=== PATIENT | female | born 1955 | race Caucasian/White ===

== ENCOUNTER 2021-10-25 13:06 | Emergency (ER) | payer MEDICARE, SELFPAY ==
[2021-10-25 14:41] VITALS: BP 137/72; PULSE 91; RESP 18; TEMP 36.7; O2SAT 96; BMI 24.0
--- NOTE | 2021-10-25 14:52 | ED_ITS ---
HPI - Abdominal Pain General: Chief Complaint: Abdominal Pain Stated Complaint: Catscan Time Seen by Provider: 10/25/21 14:52 Source: patient Mode of arrival: ambulatory Limitations: no limitations History of Present Illness: 66-year-old female presents emergency room from her nurse practitioner's office. She had 3+ blood in the urine depth there is other labs pending but I cannot see them. She has a history of diverticulosis has had suprapubic discomfort recently but no flank pain. She denies any dysuria. No fever sweats chills no diarrhea no hematochezia melena hematemesis coffee-ground emesis. She not noticed anything that makes it better or worse. MD elicited complaint: abdominal pain Pertinent past history: diverticulitis and other (Diverticulosis) Onset (ago): day(s) Pain Consistency: constant Location: Suprapubic Severity: mild Quality: cramping Radiation: none Exacerbating factors: nothing Relieving factors: nothing Associated Symptoms: Reports GI cramping; Denies anorexia, belching, bloating, change in bowel habits, change in stool character, chills, coffee ground emesis, constipation, diarrhea, dyspepsia, dysuria, excessive flatus, fever(s), heartburn, hematochezia, hematuria, hematemesis, fecal incontinence, loose stools, melena, nausea, poor appetite, syncope and vomiting Review of Systems Const: Denies: fever(s) or chills ENMT: Denies: throat pain, ear or mastoid pain, nasal discharge or nasal congestion Card: Denies: syncope Resp: Denies: dyspnea, productive cough or non-productive cough GI: Reports: GI cramping; Denies: nausea, vomiting, hematemesis, coffee ground emesis, heartburn, diarrhea, constipation, bloating, belching, excessive flatus, fecal inco ntinence, change in bowel habits, change in stool character, hematochezia or melena : Denies: dysuria or hematuria Skin/Breast: Denies: rash or pruritus PFSH ED PFSH: Medical History Anxiety Chronic back pain greater than 3 months duration Fibromyalgia GERD (gastroesophageal reflux disease) Smoker Surgical History H/O dilation and curettage History of tonsillectomy Family History Other Cancer Diabetes Social History Smoking and tobacco status: current every day smoker cigarettes Years cigare ttes smoked: 10 Alcohol intake: current Alcohol intake frequency: holidays/special occasions only Alcohol type: wine Household members: children Marital status: Current occupational status: retired Current gender identity: Female Physical Exam Const: GENERAL APPEARANCE: cooperative and comfortable ORIENTATION/CONSCIOUSNESS: Yes awake, Yes oriented to person, Yes oriented to place and Yes oriented to time HENMT: COMMON NORMALS: normocephalic, atraumatic and hearing grossly normal bilaterally HEAD & SCALP: normocephalic and atraumatic Neck/C-Spine: COMMON NORMALS: no JVD Resp: COMMON NORMALS: normal respiratory effort, No retractions, No use of accessory muscles and clear to auscultation bilaterally AUSCULTATION: clear to auscultation bilaterally Cardio: COMMON NORMALS: no JVD, regular rate, regular rhythm and No murmurs present (Cardio) RATE: regular rate RHYTHM: regular rhythm GI: COMMON NORMALS: No hepatosplenomegaly present AUSCULTATION: Yes normoactive bowel sounds PALPATION: Yes Tenderness to palpation present (GI) (Suprapubic), No Guarding due to palpation present (GI) and Yes No hepatosplenomegaly present : COMMON NORMALS: Yes no CVA tenderness BLADDER/KIDNEY EXAM: Yes no CVA tenderness Back/Pelvis: COMMON NORMALS: no CVA tenderness Extremity: COMMON NORMALS: normal to inspection, capillary refill normal, no clubbing, cyanosis or edema, no calf tenderness and no pedal edema Neuro: SENSORIUM/ORIENTATION: Yes oriented to person, Yes oriented to place and Yes oriented to time Skin: COMMON NORMALS: no rashes or lesions noted GENERAL SKIN EXAM: no rashes or lesions noted Course Vital Signs: Vital signs: Vital Signs Temperature 98.0 F 10/25/21 14:41 Pulse Rate 91 10/25/21 16:05 Respiratory Rate 16 10/25/21 16:05 Blood Pressure 155/99 10/25/21 16:05 Pulse Oximetry 97 10/25/21 16:05 MDM - Abdominal Pain Medical Decision Making Also the patient's discomfort is suprapubic. To the extent she may have diverticulitis it is very mild. Discussed this with her do not recommend a CT I think at this point given her relatively normal white count we can just treat her with Augmentin which should cover most bladder pathogens as well as adequately treat diverticulitis if present however does not seem to be on exam. Clear liquid diet for the next 24 to 40 hours and advance as tolerated. Return if any symptoms worsen Medical Records I reviewed the patient's medical records. Lab Data I reviewed the patient's lab results. Discharge Plan Discharge Patient Disposition: Home Clinical Impression: Cystitis Condition: Stable Prescriptions: New Augmentin 875-125 mg tablet 1 tab PO BID Qty: 20 0RF No Action albuterol sulfate [ProAir HFA] 90 mcg/actuation HFA aerosol inhaler 2 puff inhalation QID PRN (Reason: shortness of breath or wheezing) Qty: 8.5 0RF alprazolam 2 mg tablet 2 mg PO DAILY PRN (Reason: anxiety) Qty: 45 2RF carisoprodol [Soma] 350 mg tablet 350 mg PO TID Qty: 90 2RF esomeprazole magnesium 40 mg capsule,delayed release(DR/EC) 40 mg PO DAILY Qty: 30 4RF fluoxetine 40 mg capsule 40 mg PO DAILY Qty: 30 4RF fluticasone propionate [Flonase Allergy Relief] 50 mcg/actuation spray,suspension 1 spray intranasal DAILY Qty: 16 3RF Rx Instructions: administer into each nostril tramadol 50 mg tablet 50 mg PO TID PRN (Reason: pain) Qty: 90 1RF diclofenac sodium [Voltaren Arthritis Pain] 1 % gel 2 g topical QID Qty: 100 2RF Rx Instructions: apply to single elbow, wrist or hand; for hand includes palm/fingers/back of hand Discharge Orders: Discharge ED (Routine); Ordered 10/25/21 Ordered By: Abdoulaye Augustin Referrals: Charo Hernandez MD [Primary Care Provider] - Discharge Diet: Usual diet Discharge Activity: Increase activity as tolerated Patient Instructions: Opioid Safety Activity Restrictions/Additional Instructions: Increase fluids follow-up with your primary care doctor as needed Coding Level of Care Code ED Jumpbasting Facing Baster for Chg Fwd Exam Comprehensive
--- NOTE | 2021-10-25 15:45 | PC.NURSE ---
pt outside room asked the pt if i could help. pt agitated she stated that she wanted to speak with the dr. while at bedside pt states, i don't want to be here for 6 hours and just give me some dam antibiotic so i can go home . informed dr. reyez he verbalizes understanding stating, i'm just waiting for her cbc to come back .
[2021-10-25 16:05] VITALS: BP 155/99; PULSE 91; RESP 16; O2SAT 97
== END 2021-10-25 16:07 | disposition home or self-care (01) ==
PROVIDERS: Emergency Provider Family Medicine; PCP Family Medicine
DX: N30.90 Cystitis, unspecified without hematuria (principal); F17.210 Nicotine dependence, cigarettes, uncomplicated
CPT/HCPCS: 80053; 81003; 85025; 87086; 99281

== ENCOUNTER → 2021-11-06 11:50 | Outpatient (BNVA) | payer MEDICARE, SELFPAY | PROVIDERS: PCP Nurse Practitioner Family; Visit Provider Nurse Practitioner Family | DX: F41.9 Anxiety disorder, unspecified (principal); M79.7 Fibromyalgia; Z13.6 Encounter for screening for cardiovascular disorders; M54.9 Dorsalgia, unspecified; G89.29 Other chronic pain; K21.9 Gastro-esophageal reflux disease without esophagitis; E55.9 Vitamin D deficiency, unspecified | CPT/HCPCS: 80053; 80061; 81003; 82306; 82607; 83735; 84443; 85025; 87086 ==

== ENCOUNTER → 2022-08-12 11:15 | Outpatient (BNVA) | payer MEDICARE, SELFPAY | PROVIDERS: PCP Nurse Practitioner Family; Visit Provider Family Medicine | DX: E53.8 Deficiency of other specified B group vitamins (principal); E55.9 Vitamin D deficiency, unspecified; E78.5 Hyperlipidemia, unspecified; G89.29 Other chronic pain; K21.9 Gastro-esophageal reflux disease without esophagitis; M54.9 Dorsalgia, unspecified; M79.7 Fibromyalgia | CPT/HCPCS: 80053; 80061; 82306; 82607; 84443; 85025 ==

== ENCOUNTER → 2022-11-11 10:30 | Outpatient (BNVA) | payer MEDICARE, SELFPAY | PROVIDERS: PCP Nurse Practitioner Family; Visit Provider Family Medicine | DX: E53.8 Deficiency of other specified B group vitamins (principal); E55.9 Vitamin D deficiency, unspecified; E78.5 Hyperlipidemia, unspecified; M79.7 Fibromyalgia | CPT/HCPCS: 80053; 80061; 82306; 82607; 84443; 85025; 87400 ==

== ENCOUNTER → 2022-11-22 11:24 | Outpatient (BNVA) | payer MEDICARE, SELFPAY | PROVIDERS: PCP Nurse Practitioner Family; Visit Provider Family Medicine | DX: J11.1 Influenza due to unidentified influenza virus with other respiratory manifestations (principal) | CPT/HCPCS: 87400 ==

== ENCOUNTER → 2023-01-13 08:10 | Outpatient (BNVA) | payer MEDICARE, SELFPAY | PROVIDERS: PCP Family Medicine; Referring Provider Family Medicine; Visit Provider Otolaryngology | DX: J32.9 Chronic sinusitis, unspecified (principal); M26.623 Arthralgia of bilateral temporomandibular joint; F17.211 Nicotine dependence, cigarettes, in remission | CPT/HCPCS: 99203 ==

== ENCOUNTER → 2023-02-11 10:53 | Outpatient (BNVA) | payer MEDICARE, SELFPAY | PROVIDERS: PCP Family Medicine; Visit Provider Family Medicine | DX: E53.8 Deficiency of other specified B group vitamins (principal); E55.9 Vitamin D deficiency, unspecified; E78.5 Hyperlipidemia, unspecified; M79.7 Fibromyalgia; Z20.828 Contact with and (suspected) exposure to other viral communicable diseases; K21.9 Gastro-esophageal reflux disease without esophagitis; M54.9 Dorsalgia, unspecified; G89.29 Other chronic pain | CPT/HCPCS: 80053; 80061; 82306; 82607; 84443; 85025 ==

== ENCOUNTER → 2023-05-13 11:16 | Outpatient (BNVA) | payer MEDICARE, SELFPAY | PROVIDERS: PCP Family Medicine; Visit Provider Family Medicine | DX: M79.7 Fibromyalgia (principal); F32.A Depression, unspecified; E53.8 Deficiency of other specified B group vitamins; E78.5 Hyperlipidemia, unspecified; E55.9 Vitamin D deficiency, unspecified | CPT/HCPCS: 80053; 80061; 82306; 82607; 84443; 85025 ==

== ENCOUNTER → 2023-08-15 12:00 | Outpatient (BNVA) | payer MEDICARE, SELFPAY | PROVIDERS: PCP Family Medicine; Visit Provider Family Medicine | DX: E53.8 Deficiency of other specified B group vitamins (principal); E78.5 Hyperlipidemia, unspecified; E55.9 Vitamin D deficiency, unspecified | CPT/HCPCS: 80053; 80061; 82306; 82607; 84443; 85025 ==

== ENCOUNTER → 2023-11-10 16:30 | Outpatient (BNVA) | payer MEDICARE, SELFPAY | PROVIDERS: PCP Family Medicine; Visit Provider Family Medicine | DX: M79.7 Fibromyalgia (principal); E78.2 Mixed hyperlipidemia; E55.9 Vitamin D deficiency, unspecified | CPT/HCPCS: 80053; 80061; 82306; 84443; 85025 ==

== ENCOUNTER → 2023-11-25 15:42 | Outpatient (BNVA) | payer MEDICARE, SELFPAY | PROVIDERS: PCP Family Medicine; Visit Provider Family Medicine | DX: B34.9 Viral infection, unspecified (principal); R05.9 Cough, unspecified | CPT/HCPCS: 87400; 87426 ==

== ENCOUNTER → 2023-12-11 15:55 | Outpatient (BNVA) | payer MEDICARE, SELFPAY | PROVIDERS: PCP Family Medicine; Visit Provider Family Medicine | DX: R05.9 Cough, unspecified (principal); N39.0 Urinary tract infection, site not specified | CPT/HCPCS: 81003; 87086; 87400 ==

== ENCOUNTER → 2023-12-26 15:27 | Outpatient (BNVA) | payer MEDICARE, SELFPAY | PROVIDERS: PCP Family Medicine; Visit Provider Nurse Practitioner Family | DX: R05.9 Cough, unspecified (principal) | CPT/HCPCS: 87400 ==

== ENCOUNTER → 2024-02-09 11:17 | Outpatient (BNVA) | payer MEDICARE, SELFPAY | PROVIDERS: PCP Family Medicine; Visit Provider Family Medicine | DX: E78.2 Mixed hyperlipidemia (principal); E55.9 Vitamin D deficiency, unspecified; E53.8 Deficiency of other specified B group vitamins; K21.9 Gastro-esophageal reflux disease without esophagitis; M79.7 Fibromyalgia; F41.9 Anxiety disorder, unspecified; M54.9 Dorsalgia, unspecified; G89.29 Other chronic pain | CPT/HCPCS: 80053; 80061; 82306; 82607; 84443; 85025 ==

== ENCOUNTER 2024-12-28 07:55 | Outpatient (CLI) | payer MEDICARE, SELFPAY ==
--- NOTE | 2024-12-28 07:58 | MM_ITS ---
WS: [id number] VIEWS: MLO, CC, and ML views both breasts. 3D digital tomosynthesis is also included in this exam. No priors. Findings: The breasts are extremely dense, which lowers the sensitivity of mammography. No sign of suspicious mass, tumor calcification or architectural distortion. A stereotactic biopsy marker is seen in the upper outer quadrant of the RIGHT breast. MM/MM diag BI tomosynthesis [id number] Impression: BI-RADS: 2 - Benign FOLLOW-UP: 1 Year Follow-up This mammogram was also analyzed by the Computer Aided Detection System R2 Imag e [employer]is[employer] Filler.
== END 2024-12-28 07:56 | disposition home or self-care (01) ==
LOC: RAD 07:56
PROVIDERS: PCP Internal Medicine; Visit Provider Internal Medicine
DX: R92.8 Other abnormal and inconclusive findings on diagnostic imaging of breast (principal); R92.343 Mammographic extreme density, bilateral breasts
CPT/HCPCS: 77062; G0279

== ENCOUNTER 2025-02-22 09:33 | Emergency (ER) | payer MEDICARE, SELFPAY ==
[2025-02-22 09:42] VITALS: BP 143/86; PULSE 104; RESP 16; TEMP 36.8; O2SAT 97
[2025-02-22 10:16] LABS: Basophils % 0.3 %; Eosinophils # 0.1 10^3/uL (0.0-0.8); Eosinophils % 0.5 %; Hematocrit 46.9 % (36-47); Lymphocytes # 2.5 10^3/uL (0.8-4.8); Lymphocytes % 19.4 %; Mean Corpuscular HGB Conc 32.8 g/dL (30-55); Mean Corpuscular Hemoglobin 30.6 pg (27-33); Mean Corpuscular Volume 93.1 fl (85-98); Neutrophils # 9.02 10^3/uL (1.8-7.7); Neutrophils % 71.4 %; Nucleated Red Blood Cells % 0 %; Platelet Count 322 10^3/cmm (157-399); Red Blood Count 5.04 10^6/uL (3.85-5.65); Red Cell Distribution Width 13.2 % (12.1-15.1); White Blood Count 12.63 10^3/uL (3.29-11.43)
[2025-02-22 10:35] LABS: Alanine Aminotransferase 10 U/L (0-33); Albumin Level 4.2 g/dL (3.5-5.2); Alkaline Phosphatase 89 U/L (35-105); Aspartate Amino Transferase 14 U/L (0-32); Blood Urea Nitrogen 8 mg/dL (8-23); Calcium 9.5 mg/dL (8.5-10.5); Carbon Dioxide 23 mmol/L (22-29); Chloride 101 mmol/L (98-107); Creatinine Clr Calc Pharmacy 55.5094; Globulin 2.5 g/dL (1.3-4.6); Glucose 98 mg/dL (65-115); Lipase 18 U/L (13-60); Osmolality Calculated 284 mOsm/kg (285-295); Sodium 138 mmol/L (136-145); Total Bilirubin 0.3 mg/dL (0.15-1.2); Total Protein 6.7 g/dL (6.6-8.7)
--- NOTE | 2025-02-22 13:18 | W.ED.ABDPA2 ---
HPI - Abdominal Pain General: Chief Complaint: Abdominal Pain Stated Complaint: lower abdominal pain Time Seen by Provider: 02/22/25 13:17 Source: patient Mode of arrival: ambulatory Limitations: no limitations History of Present Illness: Patient is a 70-year-old female presents to ED today with a complaint of pain to her left abdomen that she has had over the past few days. She states she has a history of diverticulitis that was diagnosed clinically by Dr. Hu. She states she recently finished a round of Cipro and Flagyl. She was doing well following this medication. She was also doing some functional medicine/holistic approaches with castor oil and seed oils. She states yesterday she ate a small amount of eggs and immediately her abdomen began hurting again. She has had watery diarrhea. No fevers. She has not vomiting. MD elicited complaint: abdominal pain Pertinent past history: other (diverticulitis ) Onset (ago): day(s) Pain Consistency: constant Location: LLQ Severity: moderate Radiation: none Migration to: no migration Exacerbating factors: eating Relieving factors: nothing Associated Symptoms: Reports diarrhea and other (diarrhea); Denies chills, dysuria, fever(s), nausea, syncope and vomiting Related Data Previous Rx's ?Medication ?Instructions ?Recorded coenzyme Q10 75 mg capsule (Ultra 75 mg PO DAILY #90 caps 10/16/22 CoQ10) triamcinolone acetonide 0.025 % 1 applic topical BID #15 grams 04/07/23 topical ointment budesonide 160 mcg-glycopyr 9 2 inh inhalation BID 30 days #10.7 01/16/24 mcg-formot 4.8 mcg/actuation HFA grams inhaler (Breztri Aerosphere) albuterol sulfate 90 mcg/actuation 2 puff inhalation 6XD PRN 05/13/24 aerosol inhaler (Ventolin HFA) shortness of breath or wheezing #8.5 grams alprazolam 2 mg tablet 2 mg PO BID #60 tabs 05/13/24 carisoprodol 350 mg tablet (Soma) 350 mg PO TID #90 tabs 05/13/24 cholecalciferol (vitamin D3) 1,250 50,000 unit PO .weekly #12 caps 05/13/24 mcg (50,000 unit) capsule cyanocobalamin (vitamin B-12) See Rx Instructions .Route 05/13/24 1,000 mcg/mL injection solution .COMPLEX #1 mL diclofenac sodium 1 % topical gel See Rx Instructions .Route 05/13/24 .COMPLEX #100 grams esomeprazole magnesium 40 mg 40 mg PO DAILY #90 caps 05/13/24 capsule,delayed release fexofenadine 60 mg-pseudoephedrine 1 tab PO Q12H PRN allergy symptoms 05/13/24 ER 120 mg tablet,ext.release,12 hr #30 tabs (Carmela-D 12 Hour) fluoxetine 40 mg capsule See Rx Instructions .Route 05/13/24 .COMPLEX #90 caps fluticasone propionate 50 1 spray intranasal DAILY #16 grams 05/13/24 mcg/actuation nasal spray,suspension (Flonase Allergy Relief) mecobalamin (vitamin B12) 1,000 1,000 mcg sublingual DAILY #90 tabs 05/13/24 mcg disintegrating tablet,sublingual montelukast 10 mg tablet 10 mg PO DAILY 90 days #90 tabs 05/13/24 rosuvastatin 5 mg tablet See Rx Instructions .Route 05/13/24 .COMPLEX #30 tabs tramadol 50 mg tablet 50 mg PO TID #90 tabs 05/13/24 tretinoin 0.05 % topical cream 1 applic topical Q3D #45 grams 05/13/24 (Retin-A) amoxicillin 875 mg-potassium 1 tab PO BID #20 tabs 02/22/25 clavulanate 125 mg tablet hydrocodone 5 mg-acetaminophen 325 1 tab PO Q6H PRN pain #14 tabs 02/22/25 mg tablet ondansetron 4 mg disintegrating 4 mg PO Q8H PRN nausea and 02/22/25 tablet vomiting #14 tabs Allergies Allergy/AdvReac Type Severity Reaction Status Date / Time Sulfa (Sulfonamide Allergy itching Verified 06/04/24 14:10 Antibiotics) Review of Systems Const: Denies: fever(s) or chills Eyes: Denies: change in vision or blurry vision Card: Denies: chest pain, palpitations, irregular heart rhythm, lightheadedness, syncope or dyspnea on exertion Resp: Denies: dyspnea, productive cough or pain on inspiration GI: Reports: abdominal pain, diarrhea and other (diarrhea); Denies: nausea or vomiting : Denies: flank pain or dysuria Musc: Denies: neck pain, back pain, extremity pain, extremity swelling or joint pain Skin/Breast: Denies: rash Neuro: Denies: headache(s), numbness in extremities, weakness in extremities, sensory changes or dizziness PFSH ED PFSH: Medical History Enrolled in chronic care management Anxiety Smoker Chronic back pain greater than 3 months duration GERD (gastroesophageal reflux disease) Fibromyalgia Surgical History History of nasal septoplasty Hx of nasal polypectomy History of tonsillectomy H/O dilation and curettage Family History Other Cancer Diabetes Social History Smoking and tobacco/nicotine status: tobacco/nicotine user, details unknown cigarettes Years cigarettes smoked: 10 Alcohol intake: current Alcohol intake frequency: holidays/special occasions only Alcohol type: wine Substance/Drug Use: never Household members: children Marital status: Current occupational status: retired Current gender identity: Female Physical Exam Const: COMMON NORMALS: no acute distress, average body habitus, patient oriented x3, no limitations, healthy appearing, alert and well nourished GENERAL APPEARANCE: cooperative ORIENTATION/CONSCIOUSNESS: Yes awake, Yes oriented to person, Yes oriented to place and Yes oriented to time Eye: COMMON NORMALS: no scleral icterus Resp: COMMON NORMALS: normal respiratory effort and clear to auscultation bilaterally AUSCULTATION: clear to auscultation bilaterally Cardio: COMMON NORMALS: regular rate and regular rhythm RATE: regular rate RHYTHM: regular rhythm GI: COMMON NORMALS: Normal to inspection, nondistended, normoactive bowel sounds present, Soft to palpation, No hepatosplenomegaly present and no masses INSPECTION: Yes normal to inspection AUSCULTATION: Yes normoactive bowel sounds PALPATION: Yes Soft to palpation, Yes Tenderness to palpation present (GI) (mainly L lower), No Guarding due to palpation present (GI), No Rigid due to palpation and Yes No hepatosplenomegaly present : COMMON NORMALS: Yes no CVA tenderness BLADDER/KIDNEY EXAM: Yes no CVA tenderness Back/Pelvis: COMMON NORMALS: no CVA tenderness, thoracic and lumbar spine normal to inspection and no thoracic nor lumbar tenderness Extremity: GENERAL: Yes normal exam except as noted Neuro: COMMON NORMALS: patient oriented x3, moves all extremities, no focal motor deficits, no sensory deficits noted and gait normal SENSORIUM/ORIENTATION: Yes alert, Yes oriented to person, Yes oriented to place and Yes oriented to time Skin: COMMON NORMALS: no rashes or lesions noted GENERAL SKIN EXAM: no rashes or lesions noted Course Vital Signs: Vital signs: Vital Signs Temperature 98.2 F 02/22/25 09:42 Pulse Rate 104 H 02/22/25 09:42 Respiratory Rate 16 02/22/25 09:42 Blood Pressure 143/86 02/22/25 09:42 Pulse Oximetry 97 02/22/25 09:42 Oxygen Delivery Me thod Room Air 02/22/25 09:42 MDM - Abdominal Pain Medical Decision Making Patient here for left-sided abdominal pain. She was found to have diverticulitis. No perforation or abscess. Patient finished Cipro/Flagyl approximately week ago. Will try her on Augmentin twice daily for 10 days. Return to ED precautions discussed. Will have her follow-up with Dr. Hu. Blood work overall is nonactionable. Her UA with hematuria. She reports chronic hematuria- ever since the age of 19 . Will follow-up with primary care for this. Medical Records I reviewed the patient's medical records. Lab Data I reviewed the patient's lab results. 02/22/25 10:00 02/22/25 10:00 Labs/Radiology: Radiology Impressions Abdomen/Pelvis CT 02/22/25 13:26 IMPRESSION: 1. Diffuse thickening of the sigmoid colon with surrounding induration compatible with acute diverticulitis. No evidence of drainable abscess or fluid collection. Recommend follow-up to resolution. 2. Fatty liver. 3. Calcified uterine fibroid. 4. Findings of gastritis and duodenitis Laboratory Results WBC 12.63 10^3/uL (3.29-11.43) H 02/22/25 10:00 RBC 5.04 10^6/uL (3.85-5.65) 02/22/25 10:00 Hgb 15.40 g/dL (11.27-16.99) 02/22/25 10:00 Hct 46.9 % (36-47) 02/22/25 10:00 MCV 93.1 fl (85-98) 02/22/25 10:00 MCH 30.6 pg (27-33) 02/22/25 10:00 MCHC 32.8 g/dL (30-55) 02/22/25 10:00 RDW 13.2 % (12.1-15.1) 02/22/25 10:00 Plt Count 322 10^3/cmm (157-399) 02/22/25 10:00 MPV 11.0 fL (7.4-10.4) H 02/22/25 10:00 Neut % (Auto) 71.4 % 02/22/25 10:00 Lymph % (Auto) 19.4 % 02/22/25 10:00 [place] % (Auto) 8.0 % 02/22/25 10:00 Eos % (Auto) 0.5 % 02/22/25 10:00 Baso % (Auto) 0.3 % 02/22/25 10:00 Neut # (Auto) 9.02 10^3/uL (1.8-7.7) H 02/22/25 10:00 Lymph # (Auto) 2.5 10^3/uL (0.8-4.8) 02/22/25 10:00 [place] # (Auto) 1.0 10^3/uL (0.2-0.9) H 02/22/25 10:00 Eos # (Auto) 0.1 10^3/uL (0.0-0.8) 02/22/25 10:00 Baso # (Auto) 0.0 10^3/uL (0.0-0.1) 02/22/25 10:00 Nucleated RBC % (auto) 0 % 02/22/25 10:00 Nucleated RBCs # 0.0 /100WBC 02/22/25 10:00 Sodium 138 mmol/L (136-145) 02/22/25 10:00 Potassium 4.0 mmol/L (3.5-5.1) 02/22/25 10:00 Chloride 101 mmol/L (98-107) 02/22/25 10:00 Carbon Dioxide 23 mmol/L (22-29) 02/22/25 10:00 Anion Gap 18.0 (5-19) 02/22/25 10:00 BUN 8 mg/dL (8-23) 02/22/25 10:00 Creatinine 0.7 mg/dL (0.5-0.9) 02/22/25 10:00 GFR Calculation Not Reportable 02/22/25 10:00 Glucose 98 mg/dL (65-115) 02/22/25 10:00 Calculated Osmolality 284 mOsm/kg (285-295) L 02/22/25 10:00 Calcium 9.5 mg/dL (8.5-10.5) 02/22/25 10:00 Total Bilirubin 0.3 mg/dL (0.15-1.2) 02/22/25 10:00 AST 14 U/L (0-32) 02/22/25 10:00 ALT 10 U/L (0-33) 02/22/25 10:00 Alkaline Phosphatase 89 U/L (35-105) 02/22/25 10:00 Total Protein 6.7 g/dL (6.6-8.7) 02/22/25 10:00 Albumin 4.2 g/dL (3.5-5.2) 02/22/25 10:00 Globulin 2.5 g/dL (1.3-4.6) 02/22/25 10:00 Lipase 18 U/L (13-60) 02/22/25 10:00 Urine Color Yellow (Yellow) 02/22/25 13:47 Urine Appearance Clear (CLEAR) 02/22/25 13:47 Urine pH 5.5 (5-7) 02/22/25 13:47 Ur Specific [place] 1.017 (1.005-1.030) 02/22/25 13:47 Urine Protein 2+ (Negative) A 02/22/25 13:47 Urine Glucose (UA) Negative (Normal) 02/22/25 13:47 Urine Ketones 1+ (Negative) H 02/22/25 13:47 Urine Blood 3+ (Negative) A 02/22/25 13:47 Urine Nitrate Negative (Negative) 02/22/25 13:47 Urine Bilirubin Negative (Negative) 02/22/25 13:47 Urine Urobilinogen 1.0 mg/dL (Negative) 02/22/25 13:47 Ur Leukocyte Esterase Trace (Negative) A 02/22/25 13:47 Urine RBC 21-50 /hpf (0-2) H 02/22/25 13:47 Urine WBC 0-5 /hpf (0-5) 02/22/25 13:47 Ur Squamous Epith Cells 0-5 /hpf (0-5) 02/22/25 13:47 Amorphous Sediment Not Reportable 02/22/25 13:47 Urine Bacteria None seen /hpf (NONE) 02/22/25 13:47 Hyaline Casts 3.30 /lpf 02/22/25 13:47 All radiology interpretation(s) finalized by discharge Discharge Plan Discharge Patient Disposition: Home Clinical Impression: Diverticulitis Condition: Stable Prescriptions: New amoxicillin-pot clavulanate 875-125 mg tablet 1 tab PO BID Qty: 20 0RF hydrocodone-acetaminophen 5-325 mg tablet 1 tab PO Q6H PRN (Reason: pain) Qty: 14 0RF ondansetron 4 mg tablet,disintegrating 4 mg PO Q8H PRN (Reason: nausea and vomiting) Qty: 14 0RF No Action triamcinolone acetonide 0.025 % ointment 1 applic topical BID Qty: 15 0RF albuterol sulfate [Ventolin HFA] 90 mcg/actuation HFA aerosol inhaler 2 puff inhalation 6XD PRN (Reason: shortness of breath or wheezing) Qty: 8.5 6RF alprazolam 2 mg tablet 2 mg PO BID Qty: 60 3RF carisoprodol [Soma] 350 mg tablet 350 mg PO TID Qty: 90 3RF cholecalciferol (vitamin D3) 1,250 mcg (50,000 unit) capsule 50,000 unit PO .weekly Qty: 12 3RF cyanocobalamin (vitamin B-12) 1,000 mcg/mL solution See Rx Instructions .ROUTE .COMPLEX Qty: 1 5RF Dose Instruction: INJECT 1000MCG INTRAMUSCULARLY MONTHLY Rx Instructions: INJECT 1000MCG INTRAMUSCULARLY MONTHLY diclofenac sodium 1 % gel See Rx Instructions .ROUTE .COMPLEX Qty: 100 0RF Dose Instruction: APPLY 2 GRAMS FOUR TIMES A DAY TO SINGLE ELBOW, WRIST OR HAND (INCLUDES PALM, FINGERS AND BACK OF HAND) Rx Instructions: APPLY 2 GRAMS FOUR TIMES A DAY TO SINGLE ELBOW, WRIST OR HAND (INCLUDES PALM, FINGERS AND BACK OF HAND) esomeprazole magnesium 40 mg capsule,delayed release(DR/EC) 40 mg PO DAILY Qty: 90 1RF fexofenadine-pseudoephedrine [Carmela-D 12 Hour] 60-120 mg tablet extended release 12 hr 1 tab PO Q12H PRN (Reason: allergy symptoms) Qty: 30 0RF fluoxetine 40 mg capsule See Rx Instructions .ROUTE .COMPLEX Qty: 90 1RF Dose Instruction: Take 1 capsule by mouth once daily Rx Instructions: Take 1 capsule by mouth once daily fluticasone propionate [Flonase Allergy Relief] 50 mcg/actuation spray,suspension 1 spray intranasal DAILY Qty: 16 3RF Rx Instructions: administer into each nostril mecobalamin (vitamin B12) 1,000 mcg tablet,disintegrating 1,000 mcg sublingual DAILY Qty: 90 4RF Rx Instructions: place tablet under tongue and allow to dissolve for at least30 secs before swallowing montelukast 10 mg tablet 10 mg PO DAILY 90 Days Qty: 90 2RF rosuvastatin 5 mg tablet See Rx Instructions .ROUTE .COMPLEX Qty: 30 3RF Dose Instruction: Take 1 tablet by mouth once daily Rx Instructions: Take 1 tablet by mouth once daily tramadol 50 mg tablet 50 mg PO TID Qty: 90 2RF tretinoin [Retin-A] 0.05 % cream 1 applic topical Q3D Qty: 45 0RF Breztri Aerosphere 160-9-4.8 mcg/actuation HFA aerosol inhaler 2 inh inhalation BID 30 Days Qty: 10.7 3RF Ultra CoQ10 75 mg capsule 75 mg PO DAILY Qty: 90 1RF Discharge Orders: Discharge ED (Routine); Ordered 02/22/25 Ordered By: Zee Ludwig Referrals: Lam Hu MD [Primary Care Provider, Internal Medicine] Patient Instructions: Diverticulitis (DC), Diverticulitis Diet (ED), Opioid Safety, Pain Management Activity Restrictions/Additional Instructions: As we discussed, we will place you on antibiotics for the diverticulitis. You need to return to the emergency department for severe or worsening abdominal pain, inability to tolerate your antibiotics, fevers, generally feeling worse or unwell, or any other concerns you may have. Please follow-up with Dr. Hu later this week/early next week for re-evaluation. Print Language: Turkish Coding Level of Care Code ED Testing Machine Operator for Momo Osei
--- NOTE | 2025-02-22 13:26 | CT_ITS ---
WS: [id number] CT ABDOMEN PELVIS TECHNIQUE: Contrast-enhanced CT of the abdomen and pelvis with coronal and sagittal reformatted images. CLINICAL INFORMATION: LLQ pain COMPARISON: None. DLP: 497.[address] scans at [facility] use at least one of these dose optimization techniques: automated exposure control; mA and/or kV adjustment per patient size (includes targeted exams where dose is matched to clinical indication); or iterative reconstruction. FINDINGS: Diffuse thickening of the sigmoid colon with surrounding induration compatible with acute diverticulitis. No evidence of drainable abscess or fluid collection. Recommend follow-up to resolution. Normal appendix. Fatty liver. Lung bases are well aerated. Normal portal vein and splenic vein. Normal GE junction. Findings of gastritis and duodenitis. Normal pancreatic parenchymal enhancement. Adrenal glands are normal. Normal renal parenchymal enhancement. No hydronephrosis. Tiny RIGHT renal cyst. Aortic calcification. Tiny fat-containing umbilical hernia. Calcified uterine fibroid. Extensive marvin colonic diverticulosis. CT/CT abdomen pelvis w con* [id number] IMPRESSION: 1. Diffuse thickening of the sigmoid colon with surrounding induration compati ble with acute diverticulitis. No evidence of drainable abscess or fluid collec tion. Recommend follow-up to resolution. 2. Fatty liver. 3. Calcified uterine fibroid. 4. Findings of gastritis and duodenitis
[2025-02-22 13:58] LABS: Bilirubin Urine Negative (Negative); Blood Urine 3+ (Negative); Glucose Urine UA Negative (Normal); Ketones Urine 1+ (Negative); Leukocyte Esterase Urine Trace (Negative); Nitrate Urine Negative (Negative); Protein Urine 2+ (Negative); Specific Gravity, Urine 1.017 (1.005-1.030); Urine Appearance Clear (CLEAR); Urine Color Yellow (Yellow); pH Urine 5.5 (5-7)
[2025-02-22 14:00] LABS: Add Urine Microscopic? YES; Bacteria Urine None Seen /hpf; RBC Urine 21-50 /hpf (0-2); Squamous Epithelial Cell Urine 0-5 /hpf (0-5); WBC Urine 0-5 /hpf (0-5)
[2025-02-22] MEDS: sodium chloride 0.9% 1,000 ML 999 ML IV (14:06)
[2025-02-22 14:08] LABS: Add Urine Culture? Yes
[2025-02-22] MEDS: iohexol 350 mg/mL 500 mL Btl (per mL) IV (14:32)
== END 2025-02-22 16:10 | disposition home or self-care (01) ==
PROVIDERS: Emergency Provider Physician Assistant; PCP Internal Medicine
DX: K57.92 Diverticulitis of intestine, part unspecified, without perforation or abscess without bleeding (principal); F17.210 Nicotine dependence, cigarettes, uncomplicated
CPT/HCPCS: 36415; 74177; 80053; 81001; 83690; 85025; 87086; 99285; J7030

== ENCOUNTER 2025-04-05 15:39 | Emergency (ER) | payer MEDICARE, SELFPAY ==
--- OUTSIDE RECORDS SUMMARY | 2025-04-01 06:00 | XMS_ITS ---
Author Organization [facility] Address [address] [place] [address] Care Team Providers Care Inclinometer Tester Name Role Phone Leroy Hu Primary Care Provider [phone] Allergies Allergen (clinical drug ingredient) Drug/Non Drug Allergy documented on EMR Reaction Allergy Type Onset Date Status aspirin Aspirin Unknown Drug Allergy Active Substance with sulfonamide structure and antibacterial mechanism of action (substance) Sulfa Antibiotics Unknown Drug Allergy Active REASON FOR VISIT MEDICATION Medications Medication SIG (Take, Route, Frequency, Duration) Notes Start Date End Date Status Vitamin D3 1.25 MG (53616 UT) Capsule 1 capsule Orally Active Vilazodone HCl 40 MG Tablet 1 tablet with food Orally Once a day; Duration: 90 days 12/15/2024 Active Vilazodone HCl 10 MG Tablet 1 tablet with food Orally Once a day; Duration: 7 days 12/15/2024 Not-Taking Fluticasone Propionate 50 MCG/ACT Suspension 1 spray in each nostril Nasally Once a day; Duration: 30 days Active Albuterol Sulfate HFA 108 (90 Base) MCG/ACT Aerosol Solution 1 puff as needed Inhalation every 4 hrs; Duration: 30 days Active Ondansetron 4 MG Tablet Disintegrating 1 tablet on the tongue and allow to dissolve Orally Once a day Active Lurasidone HCl 40 MG Tablet 1 tablet in the evening with food Orally Once a day; Duration: 30 day(s) 07/20/2024 Not-Taking Breztri Aerosphere 160-9-4.8 MCG/ACT Aerosol 2 puffs Inhalation Twice a day Active traMADol HCl 50 MG Tablet 1 tablet Orall y Three times a day; Duration: 30 days 10/14/2024 Not-Taking Carisoprodol 350 MG Tablet 1/2 tablet as needed Orally daily Active ALPRAZolam 1 MG Tablet 1 tablet Orally T wice a day; Duration: 30 days 02/24/2025 Active Cyanocobalamin 1000 MCG/ML Solution 1 mL Injection Weekly; Duration: 30 days Active Amitiza 8 MCG Capsule 1 capsule with mitzy d and water Orally Twice a day; Duration: 30 days 03/29/2025 09/28/2025 Active Esomeprazole Magnesium 40 MG Capsule Delayed Release 1 capsule 1/2 to 1 hour before morning meal Orally Once a day Active Montelukast Sodium 10 MG Tablet 1 tablet Orally Once a day Active Triamcinolone Acetonide 0.025 % Ointment 1 application Externally Twice a day Active Ultra COQ10 75 MG Capsule as directed Orally daily 200mg gummies Active Social History Tobacco Use: Social History Observation Description Date Details (start date - stop date) Current Smoker NA - NA Social History Tobacco Use: Social Info Question Answer Notes Tobacco Control (Standard) Tobacco use: Current smoker How often do you smoke cigarettes? Every day How many cigarettes a day do you smoke? - Section Notes: CIME Depression screenin12/08/2024 CIME Tobacco screenin12/08/2024 Vital Signs Temperature 97.5 degrees Fahrenheit 04/01/20 Blood pressure systolic 140 mm Hg 04/01/20 Blood pressure diastolic 80 mm Hg 025 Heart Rate 124 /min 04/01/2025 Height 64 in 04/01/2025 Weight 146 lbs 04/01/2025 BMI 25.06 kg/m2 04/01/2025 Oximetry 98 % 04/01/2025 Height-cm 162.56 cm 04/01/2025 Weight-kg 66.23 kg 04/01/2025 Encounters Encounter Location Date Provider Diagnosis [facility] [address] [place] [phone] 04/01/2025 Leroy Hu Obstipation K59.00 Assessments Encounter Date Diagnosis (ICD Code) Assessment Notes Treatment Notes Treatment Clinical Notes Section Notes 04/01/2025 Obstipation (ICD-10 - K59.00) Plan Of Treatment Medication Medication Name Sig Start Date Stop Date Notes Amitiza 8 MCG Capsule 1 capsule with mitzy d and water Orally Twice a day; Duration: 30 days 03/29/2025 09/28/2025 Next Appt Details Follow Up: as shira, Reason: Provider Name:Leroy Hu, 04/12/2025 02:00:00 PM, [address], [phone], History and Physical Notes * HPI (History of Present Illness) Category Sub-Category Detail Notes Category Not es Patient Complaints Diarrhea The diarrhea: began days ago, is frequent Severity of the diarrhea: is severe The character of the diarrhea is: explos waqas, liquid, loose, profuse, watery Aggravating factors include: solid food, stress Abdominal pain The pain began: 2-3 days ago The pain is located: in the left lower quadrant, in the left upper quadrant, in the right lower quadrant, in the right upper quadrant The pain: is aching, is constant, is dul l, is sharp The severity of the pain: is considered 10 out of 10 Aggravating factors include: food intake , liquid intake Examination Category Sub-Category Detail Notes Category Not es Examination GENERAL APPEARANCE: Awake/alert. No appar ent distress HEART: Regular rate and rhy thm without rubs, murmurs, or gallops. PMI nondisplaced ABDOMEN: Soft, nontender, non distended with active bowel sounds X4. 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 Abdominal pain T he pain began 2 -3 days ago T he pain is located i n the left lower quadrant, in the left upper quadrant, in the right lower quadrant, in the right upper quadrant T he pain i s aching, is constant, is dull, is sharp T he severity of the pain i s considered 10 out of 10 A ggravating factors include f ood intake, liquid intake Diarrhea T he diarrhea b roland days ago, is frequent S everity of the diarrhea i s severe T he character of the diarrhea is e xplosive, liquid, loose, profuse, watery A ggravating factors include s olid food, stress * ROS: G eneral/Constitutional: Patient denies f atigue , fever , night sweats. ? H ematology: Patient denies e asy bruising , bleeding problems , recent transfusion. R espiratory: Patient denies c ough , shortness of breath , wheezing.? C ardiovascular: Patient denies c hest pain , irregular heartbeat , swelling in hands/feet. G astrointestinal: Patient denies c onstipation , heartburn , blood in stool , nausea , vomiting. A bdominal pain a dmits, aggravated with food, dull, left lower quadrant, left upper quadrant, right lower quadrant, right upper quadrant, that is severe, sharp. D iarrhea a dmits, that is constant, that is severe. G enitourinary: Patient denies p ainful urination , blood in the urine , difficulty urinating. E NT: Patient denies e ar pain , nosebleed, runny nose, s ore throat. M usculoskeletal: Patient denies a rthritis\arthralgia , back pain , joint stiffness , muscle aches. S kin: Patient denies s kin lesion(s) , rash , acne. ? N eurologic: Patient denies d izziness , fainting , headache , memory loss , seizures. P sychiatric: Patient denies a nxiety , depressed mood , difficulty sleeping , suicidal thoughts. m edication follow up. * Medical History: Back Trouble Fibromyalgia Impetigo Medical History Verified * Surgical History: tonsillectomy Surgical History verified. * Hospitalization/Major Diagno stic Procedure: No Hospitalization Documented. Hospitalization Verified. * Family History: F ather: 56 yrs, colon cancer. M other: alive. F amily History Verified..? * Social History: T obacco Use: T obacco Control (Standard) T obacco use: C urrent smoker H ow often do you smoke cigarettes? E very day H ow many cigarettes a day do you smoke? 1 1-20 S ocial History Verified. C IESHA Depression screenin12/08/2024 CIME Tobacco screenin12/08/2024. * Medications: T akingUltra COQ10 75 MG Capsule as directed Orally daily 200mg gummiesTriamcinolone Acetonide 0.025 % Ointment 1 application Externally Twice a day Montelukast Sodium 10 MG Tablet 1 tablet Orally Once a day Esomeprazole Magnesium 40 MG Capsule Delayed Release 1 capsule 1/2 to 1 hour before morning meal Orally Once a day Carisoprodol 350 MG Tablet 1/2 tablet as needed Orally daily Breztri Aerosphere 160-9-4.8 MCG/ACT Aerosol 2 puffs Inhalation Twice a day Ondansetron 4 MG Tablet Disintegrating 1 tablet on the tongue and allow to dissolve Orally Once a day Vilazodone HCl 40 MG Tablet 1 tablet with food Orally Once a day Vitamin D3 1.25 MG (71208 UT) Capsule 1 capsule Orally Albuterol Sulfate HFA 108 (90 Base) MCG/ACT Aerosol Solution 1 puff as needed Inhalation every 4 hrs Fluticasone Propionate 50 MCG/ACT Suspension 1 spray in each nostril Nasally Once a day Cyanocobalamin 1000 MCG/ML Solution 1 mL Injection Weekly ALPRAZolam 1 MG Tablet 1 tablet Orally Twice a day Amitiza 24 MCG Capsule 1 capsule with food and water Orally Twice a day , stop date 04/28/2025Taking Ultra COQ10 75 MG Capsule as directed Orally daily 200mg gummiesTaking Triamcinolone Acetonide 0.025 % Ointment 1 application Externally Twice a day Taking Montelukast Sodium 10 MG Tablet 1 tablet Orally Once a day Taking Esomeprazole Magnesium 40 MG Capsule Delayed Release 1 capsule 1/2 to 1 hour before morning meal Orally Once a day Taking Carisoprodol 350 MG Tablet 1/2 tablet as needed Orally daily Taking Breztri Aerosphere 160-9-4.8 MCG/ACT Aerosol 2 puffs Inhalation Twice a day Taking Ondansetron 4 MG Tablet Disintegrating 1 tablet on the tongue and allow to dissolve Orally Once a day Taking Vilazodone HCl 40 MG Tablet 1 tablet with food Orally Once a day Taking Vitamin D3 1.25 MG (46798 UT) Capsule 1 capsule Orally Taking Albuterol Sulfate HFA 108 (90 Base) MCG/ACT Aerosol Solution 1 puff as needed Inhalation every 4 hrs Taking Fluticasone Propionate 50 MCG/ACT Suspension 1 spray in each nostril Nasally Once a day Taking Cyanocobalamin 1000 MCG/ML Solution 1 mL Injection Weekly Taking ALPRAZolam 1 MG Tablet 1 tablet Orally Twice a day Taking Amitiza 24 MCG Capsule 1 capsule with food and water Orally Twice a day , stop date 04/28/2025Not-TakingtraMADol HCl 50 MG Tablet 1 tablet Orally Three times a day Lurasidone HCl 40 MG Tablet 1 tablet in the evening with food Orally Once a day Vilazodone HCl 10 MG Tablet 1 tablet with food Orally Once a day Medication List reviewed and reconciled with the patientNot-Taking traMADol HCl 50 MG Tablet 1 tablet Orally Three times a day Not-Taking Lurasidone HCl 40 MG Tablet 1 tablet in the evening with food Orally Once a day Not-Taking Vilazodone HCl 10 MG Tablet 1 tablet with food Orally Once a day Medication List reviewed and reconciled with the patient * Allergies: S ulfa AntibioticsAspirinyesAllergies Verified. Objective: * Vitals: H t: 64 in, Wt:146lbs, Wt-k.23 kg, BMI:25.06Index, Temp:97.5F, BP:140/80mm Hg, HR:124/min, Oxygen sat %:98%, O2 Source: RA, Pain scale: 10 1-10, Ht-cm: 162.56 cm. * Examination: E xamination: GENERAL APPEARANCE: A wake/alert. No apparent distress.? HEART: R egular rate and rhythm without rubs, murmurs, or gallops. PMI nondisplaced. ABDOMEN: S oft, nontender, nondistended with active bowel sounds X4. No HSM or masses. Assessment: * Assessment: 1. O bstipation - K59.00 (Primary) Plan: * Treatment: * Procedure Codes: 3 079F DIAST BP 80-89 MM [id number] SYST BP = 140 MM HG6 [id number] MED LIST DOCD IN [id number] RVW MEDS BY RX/DR IN [id number] AMNT PAIN NOTED PAIN PRSNT * Follow Up: [facility] Billing Information: * Visit Code: 21418 Office Visit, Est Pt., Level 3. * Procedure Codes: 3079F DIAST BP 80-89 MM HG. 3077F SYST BP = 140 MM HG6 IT. 1159F MED LIST DOCD IN RCRD. 1160F RVW MEDS BY RX/DR IN RCRD. 1125F AMNT PAIN NOTED PAIN PRSNT. * Sign off status: Completed true * Provider: Rocky Hu MD Date: 04/01/2025 Generated for Marcie david/Forrest/Carolitting on: 04/05/2025 03:44 PM CDT
[2025-04-05] VITALS (9 sets, daily range): BP systolic 120–161; BP diastolic 76–95; PULSE 84–115; TEMP 37.5; O2SAT 94–97; BMI 25.8
--- OUTSIDE RECORDS SUMMARY | 2025-04-05 15:44 | XMS_ITS | Clinical Summary ---
Author Organization [facility] Administrative Offices Address [address] [place] [phone] Care Team Providers Care Neurology Stroke Physician Name Role Phone Unavailable Primary Care Provider Unavailabl e Allergies Active Allergy Reactions Criticality Noted Date Comments Adhesive Rash Low 05/21/2023 Sulfa (Sulfonamide Antibiotics) Hives High 01/07 Medications ALPRAZolam 2 mg Tablet, Rapid Dissolve Take by mouth nightly as needed. 01/29/20 22 Active cholecalcifero l 1,250 mcg (50,000 unit) Capsule Take by mouth every 7 days. 11/21/19 22 Active carisoprodoL (SOMA) 350 mg tablet Take by mouth 1 time daily as needed. 01/29/20 22 Active loratadine (CLARITIN) 5 mg Tablet Take by mouth. 01/29/20 22 Active traMADoL (ULTRAM) 50 mg tablet Take by mouth 1 time daily as needed. 01/29/20 22 Active FLUoxetine (PROzac) 40 mg capsule .COMPLEX 01/02/20 22 Active rosuvastatin (CRESTOR) 5 mg tablet Take 5 mg by mouth daily. 04/23/20 23 Active esomeprazole (NexIUM) 40 mg Capsule, Delayed Release(E.C.) Take 40 mg by mouth daily. 04/12/20 23 Active cyanocobalamin (VITAMIN B-12) 1,000 mcg/mL Solution INJECT 1000MCG INTRAMUSCULARLY MONTHLY 05/13/20 23 Active diclofenac sodium (VOLTAREN) 1 % gel APPLY 2 GRAMS FOUR TIMES DAILY TO SINGLE ELBOW, WRIST OR HAND (HAND INCLUDES PALM, FINGERS AND BACK OF HAND) 03/27/20 23 Active fluticasone propionate (FLONASE) 50 mcg/spray [place], Suspension nasal inhaler USE 1 SPRAY(S) IN EACH NOSTRIL ONCE DAILY 03/27/20 Active triamterene-hy droCHLOROthiaz dorcas (MAXZIDE 25) 37.5-25 mg tablet TAKE 1 TABLET BY MOUTH IN THE MORNING 03/10/20 Active KRILL OIL ORAL Take by mouth. Active coenzyme Q10 200 mg Capsule Take 200 mg by mouth daily. Active sodium chloride (OCEAN) 0.65 % Aerosol, [place] Administer in each nostril PRN for Allergies. Active prednisoLONE acetate (PRED FORTE) 1 % suspension Administer 1 Drop in right eye 4 times daily. 5 mL 1 07/30/20 Active Active Problems No known active problems Social History Tobacco Use Types Packs/Day Years Used Date Smoking Tobacco: Every Day Cigarettes 0.5 25 Smokeless Tobacco: Never Tobacco Cessation:Ready to Q uit: Not Asked; Counseling Given: Not Answered Alcohol Use Standard Drinks/Week Comments Yes 1 (1 standard drink = 0.6 oz pur e alcohol) socially Comments No Sex and Gender Information Value Date Recorded Sex Assigned at Not on file Legal Sex Female 12:55 PM CDT Gender Identity Not on file Sexual Orientation Not on file Last Filed Vital Signs Vital Sign Reading Time Taken Comments Blood Pressure 180/83 07/30/2023 3:25 PM STUMMEL SELECTOR Pulse 86 07/30/2023 3:25 PM STUMMEL SELECTOR Temperature 36.3 C (97.3 F) 07/30/2023 3:25 PM STUMMEL SELECTOR Respiratory Rate 14 07/30/2023 3:18 PM STUMMEL SELECTOR Oxygen Saturation 97% 07/30/2023 3:25 PM STUMMEL SELECTOR Inhaled Oxygen Concentration - - Weight 69.5 kg (153 lb 4 oz) 07/30/2023 1:48 PM STUMMEL SELECTOR Height 161.9 cm (5' 3.75 ) 07/30/2023 1:48 PM CS T Body Mass Index 26.51 07/30/2023 1:48 PM STUMMEL SELECTOR Plan of Treatment Health Maintenance Due Date Last Done Comments PNEUMOCOCCAL VACCINE 50+ YEARS (1 of 2 - PCV) 02/21/19 73 BREAST CANCER SCREENING 1994 COLORECTAL SCREENING 1999 Colorectal Cancer Screening 1999 FIT-DNA Q 3 years 1999 FIT/FOBT Q 1 year 1999 Flex Sig/CT Colonography Q 5 years 1999 ZOSTER VACCINE (1 of 2) 02/22/2004 OSTEOPOROSIS SCREENING 2019 INFLUENZA VACCINE (#1) 2025 RSV VACCINE (60+ or ) (1 - 1-dose 75+ series) 2029 DTAP/TDAP/TD VACCINES (2 - Td or Tdap) 11/07/2031 Medical Devices Implanted Type Area Self Propelled Hot Mix Roller Operator Device Identifier Shelf Expiration Date Model / Serial / Lot Lens Iol Tecnis Eyhance 24.0 [id number] - [id number] Implanted:Qty: 1 on 05/27/2023 by John Reyes MD at [facility] Left: Eye [employer] 2026 [id number] / [id number] / Lens Iol Tecnis Eyhance 24.0 [id number] - [id number] Implanted:Qty: 1 on 06/18/2023 by John Reyes MD at [facility] Right: Eye [employer] 03/09/2026 [id number] / [id number] / [place] [address] [address] [place] [address] Advance Directives For more information, please contact: [phone] * Full Code (Latest Code Status on File) Date Activated Date Inactivated Comments 06/18/2023 12:18 PM 06/18/2023 5:06 PM * Full Code Date Activated Date Inactivated Comments 05/27/2023 8:59 AM 05/27/2023 1:43 PM
--- OUTSIDE RECORDS SUMMARY | 2025-04-05 15:45 | XMS_ITS | Patient Health Record ---
Author Organization [facility] Address [address] [place] [address] [place] [address] Care Team Providers Care Custodial Operations Manager Name Role Phone Leroy Hu Primary Care Provider Allergies Allergen (clinical drug ingredient) Drug/Non Drug Allergy documented on EMR Reaction Allergy Type Onset Date Status aspirin Aspirin Unknown Drug Allergy Active Substance with sulfonamide structure and antibacterial mechanism of action (substance) Sulfa Antibiotics Unknown Drug Allergy Active Results Component Value Reference Range Flag Notes Comprehensive Metabolic Pane l (CMP) 43938 Reviewed date:10/28/2024 12:16:47 PM Interpretation: Performing Lab: Notes/Report: Diagnosis Description: Deficiency of other specified B group vitamins Glucose Serum 90 71-110 MG/DL Testing p erformed at [facility], [address] [place] [address] [place] [address]. CLIA ID#: [id number] BUN 11 7-21 MG/DL Creat .79 .51-1.17 MG/DL Y-fnexfu-g-benzoquinone imine (NAPQI) is a metabolite of acetaminophen, NAPQI concentrations of apparoximately 10 mg/L correlation to toxic levels of acetaminophen demonstrates a greater than or equil to 10% change in results. NAPQI concentrations greater than this may lead to falsely depressed results for patient samples. Use of this assay is not recommended for patients undergoing treatment with phenindione, due to the potential for falsely depressed results. GFR 80.6 NA Calculation pe rformed from GFR calculator provided by the [employer]. Glomerular Filtration rate(GRF) is the best overall index of kidney function. Normal GFR varies according to age,sex, body size, and declines with age. The [employer] recommends using the CKD-EPI Creatinine Equation(2020) to estimate GFR. BUN/Creat Ratio 13.9 12.0-20.0 % Total Protein 6.5 5.8-8.0 G/DL Albumin 4.4 3.2-4.8 G/DL Globulin 2.2 2.3-3.5 G/DL LOW Alb/Glob 2.0 0.8-2.2 Calcium 9.6 8.7-10.4 MG/DL Sodium 142 136-145 MMOL/L Potassium 4.5 3.5-5.1 MMOL/L Chloride 104 98-107 MMOL/L CO2 26.7 20.0-31.0 MMOL/L Anion Gap 16 5-15 HI Alk Phos 97 46-116 Bili Total .2 .3-1.2 MG/DL LOW Use of this assay is not recommended for patients undergoing treatment with eltrombopag due to the potential for falsely elevated results. AST/SGOT 17 15-37 UNIT/L ALT/SGPT 13 12-78 UNIT/L Osmo Serum,Calculated 293 280-300 MOSM/KG Lipid Panel Reflex DLDL 8006 1, 99953 Reviewed date:10/29/2024 11:54:09 AM Interpretation: Performing Lab: Notes/Report: Diagnosis Description: Deficiency of other specified B group vitamins Trig 133 NA Classification Guidelines:Triglycerides Adults: >20yrs Desirable <150 Borderline High 150-199 High 200-499 Very high >=500 Children: Male 0-4 yr 22-99 5-9 yr 30-101 10-14 yr 32-125 15-19 yr 37-148 Children: Female 0-4 yr 34-112 5-9 yr 32-105 10-14 yr 37-131 15-19 yr 39-132 Chol 280 <=200 MG/DL HI HDL 69 39-96 MG/DL Reference Ranges:HDL Male: 5-9y 38-75 10-14y 37-74 15-19y 30-63 >=20y 40-59 Female: 5-9y 36-73 10-14y 37-70 15-19y 35-74 >=20y 40-59 CH/HDL 4.0 0.0-4.9 RATIO LDL 184 0-130 MG/DL HI LDL result is inaccurate , if Trig is >400 mg/dl. See DLDL result. Thyroid Stimulating Hormone (TSH) 00408 Reviewed date:10/28/2024 12:16:15 PM Interpretation: Performing Lab: Notes/Report: Diagnosis Description: Deficiency of other specified B group vitamins TSH 1.194 .358-3.740 MlU/ML Vitamin B12 (B) 32885 Reviewed date:10/28/2024 01:09:20 PM Interpretation: Performing Lab: Notes/Report: Diagnosis Description: Deficiency of other specified B group vitamins RcrhzowC88 >2000 211-911 pg/mL HI Bilat Diagnostic Mammogram - 54632 Reviewed date:12/29/2024 03:59:11 PM Interpretation: Performing Lab: Notes/Report: CBC w\ Auto Diff 46208 Reviewed date:10/28/2024 12:16:41 PM Interpretation: Performing Lab: Notes/Report: Diagnosis Description: Deficiency of other specified B group vitamins WBC 9.5 4.5-11.0 X10'3 RBC 4.96 4.00-5.20 X10'6 Hgb 15.1 12.0-16.0 G/DL Hct 45.5 36.0-46.0 % MCV 91.7 80.0-100.0 FL MCH 30.4 27.0-31.0 PG MCHC 33.2 31.0-37.0 G/DL Platelet 317 150-400 X10'3 RDW-SD 44.4 35.0-49.0 FL RDW-CV 13.1 12.2-15.6 % MPV 11.5 9.2-12.0 FL Neutro Auto% 61.5 40.0-70.0 % Lymph Auto% 30.1 22.0-44.0 % Newton Auto% 7.4 3.0-7.0 % HI Eos Auto% .3 2.0-4.0 % LOW Baso Auto% 0.4 0.0-1.0 % Imm Gran% .3 .0-.4 % Neutro Abs 5.81 .80-7.70 Absolute Neutrophil Count 5810 NA Lymph Abs 2.85 .10-4.10 Newton Abs .70 .20-1.00 Eos Abs .03 .00-.40 Baso Abs .04 .00-.20 Imm Gran Abs .03 .00-.10 NRBC# .00 .00-.20 X10'3 NRBC% .00 .00-.20 /100 int act WBC's UA Dip / Urinalysis, Routine , Manual - 53021 Reviewed date:01/06/2025 02:42:43 PM Interpretation: Performing Lab: Notes/Report: Color Yellow Clarity Clear Glucose - Bilirubin - Ketones - Specific [place] 1.010 Blood +++ Large pH 5.0 Protein - Urobilinogen,Semi-Qn 0.2 Nitrite, Urine - Leukocytes + Small Reason For Referral No Information Medications Medication SIG (Take, Route, Frequency, Duration) Notes Start Date End Date Status Triamcinolone Acetonide 0.025 % Ointment 1 application Externally Twice a day Active Ultra COQ10 75 MG Capsule as directed Orally daily 200mg gummies Active Vitamin D3 1.25 MG (54626 UT) Capsule 1 capsule Orally Active ALPRAZolam 1 MG Tablet 1 tablet Orally T wice a day; Duration: 30 days 02/24/2025 Active Vilazodone HCl 40 MG Tablet 1 tablet with food Orally Once a day; Duration: 90 days 12/15/2024 Active Vilazodone HCl 10 MG Tablet 1 tablet with food Orally Once a day; Duration: 7 days 12/15/2024 Not-Taking Cyanocobalamin 1000 MCG/ML Solution 1 mL Injection Weekly; Duration: 30 days Active Ondansetron 4 MG Tablet Disintegrating 1 tablet on the tongue and allow to dissolve Orally Once a day Active Lurasidone HCl 40 MG Tablet 1 tablet in the evening with food Orally Once a day; Duration: 30 day(s) 07/20/2024 Not-Taking Fluticasone Propionate 50 MCG/ACT Suspension 1 spray in each nostril Nasally Once a day; Duration: 30 days Active Breztri Aerosphere 160-9-4.8 MCG/ACT Aerosol 2 puffs Inhalation Twice a day Active Amitiza 8 MCG Capsule 1 capsule with mitzy d and water Orally Twice a day; Duration: 30 days 03/29/2025 09/28/2025 Active Albuterol Sulfate HFA 108 (90 Base) MCG/ACT Aerosol Solution 1 puff as needed Inhalation every 4 hrs; Duration: 30 days Active traMADol HCl 50 MG Tablet 1 tablet Orall y Three times a day; Duration: 30 days 10/14/2024 Not-Taking Carisoprodol 350 MG Tablet 1/2 tablet as needed Orally daily Active Esomeprazole Magnesium 40 MG Capsule Delayed Release 1 capsule 1/2 to 1 hour before morning meal Orally Once a day Active Montelukast Sodium 10 MG Tablet 1 tablet Orally Once a day Active Immunizations Vaccine Route Administration Date Status Comme nts Flucelvax Trivalent, VIAL 5m L Multi-Dose, Preservative Unknown 10/14/2024 Refused Social History Tobacco Use: Social History Observation Description Date Details (start date - stop date) Current Smoker NA - NA Social History Depression Screening Social Info Question Answer Notes depression screening findings Findings Negative (0 -4) 12/08/2024 PHQ-9 Little interest or p av in doing things Not at all Feeling down, depressed, or hopeless Not at all Trouble falling or staying asleep, or sleeping t oo much Not at all Feeling tired or having little energy Not at all Poor appetite or overeating Not at all Feeling bad about yourself, or that you are a failure, or have let yourself or your family down Not at all Trouble concentrating on thi ngs, such as reading the newspaper or watching television Not at all Moving or speaking so slowly that other people could have noticed. Or the opposite ? being so fidgety or restless that you have been moving around a lot more than usual Not at all Thoughts that you would be b mitchel off , or of hurting yourself in some way Not at all Total Score 0 Drugs/Alcohol: Social Info Question Answer Notes Drugs Have you used drugs other than those for medical reasons in the past 12 months? No Comprehensive Health Assessm ent Social Info Question Answer Notes *Social Determinants of Health Has lack of transportation kept you from medical appointments, meetings, work or from getting things needed for daily living? No Recently, have you worried t hat your food would run out before you got money to buy more? No Do you feel physically and emotionally safe wher e you currently live? No Are you worried about losing your housing? No Have you recently been rj rned that your utilities would be turned off (electricity, gas, or water)? No Drug/Alcohol: Social Info Question Answer Notes AUDIT-C (Standard) Did you have a drink containing alcohol in the past year? Yes How often did you have six or more drinks on one occasion in the past year? Less than monthly (1 point) How many drinks did you have on a typical day when you were drinking in the past year? 1 or 2 drinks (0 point) How often did you have a drink containing alcohol in the past year? Monthly or less (1 point) Points 2 Interpretation Negative Tobacco Use: Social Info Question Answer Notes Tobacco Control (Standard) Tobacco use: Current smoker How often do you smoke cigarettes? Every day How many cigarettes a day do you smoke? 07-28 Section Notes: 06/22/24 06/22/24 Tob/DEP CIME 06/22/24 Tob/DEP CIME CIME Dep/tob - 12/08/24 CIME Depression screenin12/08/2024 CIME Tobacco screenin12/08/2024 06/22/24 06/22/24 Tob/DEP CIME CIME Dep/tob - 12/08/24 CIME Depression screenin12/08/2024 CIME Tobacco screenin12/08/2024 CIME Depression screenin12/08/2024 CIME Tobacco screenin12/08/2024 CIME Depression screenin12/08/2024 CIME Tobacco screenin12/08/2024 CIME Depression screenin12/08/2024 CIME Tobacco screenin12/08/2024 Problems Problem Type SNOMED Code ICD Code Onset Dates Problem Status W/U Status Risk Notes Problem Chronic sinusitis (15771994) Chronic sinusitis, unspecified (J32.9) Active confirmed Problem Bullous impetigo (105084376) Bullous impetigo (L01.03) Active confirmed Problem Generalized anxiety disorder (97753908) GEOVANNA (generalized anxiety disorder) (F41.1) Active confirmed Problem Obstipation (119873678) Obstipation (K59.00) Active confirmed Problem Vitamin B12 deficiency (non anemic) (06707849) B12 deficiency (E53.8) Active confirmed Problem Diverticulitis of colon (816784809) Acute diverticulitis (K57.92) Active confirmed Problem Tobacco use (021506125) Tobacco use disorder (F17.200) Active confirmed Problem Benzodiazepine dependence (365203140) Benzodiazepine dependence (F13.20) Active confirmed Vital Signs Heart Rate 124 /min 04/01/2025 Temperature 97.5 degrees Fahrenheit 04/01/2025 Height-cm 162.56 cm 04/01/2025 Oximetry 98 % 04/01/2025 Blood pressure diastolic 80 mm Hg 04/01/2025 Weight-kg 66.23 kg 04/01/2025 Height 64 in 04/01/2025 Blood pressure systolic 140 mm Hg 04/01/2025 Weight 146 lbs 04/01/2025 BMI 25.06 kg/m2 04/01/2025 Encounters Encounter Location Date Provider Diagnosis [facility] [address] [address] 01/06/2025 Leroy Hu B12 deficiency E53.8 ; GEOVANNA (generalized anxiety disorder) F41.1 ; Benzodiazepine dependence F13.20 ; Bullous impetigo L01.03 ; UTI symptoms R39.9 and Depression screen Z13.31 [facility] [address] [address] 12/15/2024 Leroy Hu GEOVANNA (generalized anxiety disorder) F41.1 and Depression screen Z13.31 [facility] [address] [address] 10/14/2024 Leroy Hu B12 deficiency E53.8 ; Benzodiazepine dependence F13.20 ; Cigarette smoker F17.210 ; Depression screen Z13.31 ; Immunization not carried out because of patient refusal Z28.21 ; Encounter for immunization Z23 and Tobacco use disorder F17.200 [facility] [address] [address] 07/20/2024 Leroy Hu GEOVANNA (generalized anxiety disorder) F41.1 ; B12 deficiency E53.8 ; Benzodiazepine dependence F13.20 and Cigarette smoker F17.210 [facility] [address] [address] 07/21/2024 Leroy Hu B12 deficiency E53.8 [facility] [address] [address] 02/11/2025 Leroy Hu GEOVANNA (generalized anxiety disorder) F41.1 [facility] [address] [address] 06/22/2024 Leroy Hu B12 deficiency E53.8 ; GEOVANNA (generalized anxiety disorder) F41.1 ; Benzodiazepine dependence F13.20 ; Depression screen Z13.31 ; Cigarette smoker F17.210 and Immunization declined Z28.21 [facility] [address] [address] 04/01/2025 Leroy Hu Obstipation K59.00 [facility] [address] [address] 03/29/2025 Leroy Hu Obstipation K59.00 ; B12 deficiency E53.8 and GEOVANNA (generalized anxiety disorder) F41.1 [facility] [address] [place] [address] 01/20/2025 Leroy Hu Acute diverticulitis K57.92 and Depression screen Z13.31 [facility] [address] [address] 01/10/2025 Leroy Hu Bullous impetigo L01.03 ; B12 deficiency E53.8 ; Benzodiazepine dependence F13.20 and Depression screen Z13.31 [facility] [address] [address] 08/10/2024 Leroy Hu B12 deficiency E53.8 [facility] [address] [address] 12/08/2024 Leroy Hu B12 deficiency E53.8 ; Chronic sinusitis, unspecified J32.9 ; Tobacco use disorder F17.200 ; Other specified bacterial agents as the cause of diseases classified elsewhere B96.89 and Depression screen Z13.31 [facility] [address] [address] 2025 Leroy Hu [facility] [address] [place] [address] 02/11/2025 Leroy Hu GEOVANNA (generalized anxiety disorder) F41.1 [facility] [address] [place] [address] 12/16/2024 Leroy [facility] [address] [place] [phone] 12/15/2024 Leroy Hu Breast lesion on mammography R92.8 [facility] [address] [place] [address] 11/16/2024 Leroy Hu [facility] [address] [place] [address] 11/12/2024 Leroy Hu [facility] [address] [place] [address] 10/14/2024 Leroy [facility] [address] [place] [address] 10/14/2024 Leroy [facility] [address] [place] [address] 10/14/2024 Leroy Hu [facility] [address] [place] [address] 09/09/2024 Leroy Hu Assessments Encounter Date Diagnosis (ICD Code) Assessment Notes Treatment Notes Treatment Clinical Notes Section Notes 06/22/2024 GEOVANNA (generalized anxiety disorder) (ICD-10 - F41.1) 06/22/2024 B12 deficiency (ICD-10 - E53.8) 07/20/2024 GEOVANNA (generalized anxiety disorder) (ICD-10 - F41.1) 07/20/2024 B12 deficiency (ICD-10 - E53.8) 07/21/2024 B12 deficiency (ICD-10 - E53.8) Pt here for B12 inj. Pt provided medication. Inj given in left arm with 3ml 23gax1 needle. pt tolerated procedure nicely. 08/10/2024 B12 deficiency (ICD-10 - E53.8) Pt here for B12 inj. Pt provided medication. Inj given in left arm by Opal Martell with 3ml 23gax1 needle. pt tolerated procedure nicely. 10/14/2024 B12 deficiency (ICD-10 - E53.8) B-12 injection - patient provided medication Given to pt in left arm by Opal Martell 10/14/2024 Benzodiazepine dependence (ICD-10 - F13.20) 12/08/2024 Chronic sinusitis, unspecified (ICD-10 - J32.9) 12/15/2024 GEOVANNA (generalized anxiety disorder) (ICD-10 - F41.1) 12/15/2024 Breast lesion on mammography (ICD-10 - R92.8) 12/08/2024 B12 deficiency (ICD-10 - E53.8) 01/06/2025 GEOVANNA (generalized anxiety disorder) (ICD-10 - F41.1) Doing well. 01/06/2025 B12 deficiency (ICD-10 - E53.8) 01/10/2025 Bullous impetigo (ICD-10 - L01.03) All patient's questions are encouraged and addressed to their apparent satisfaction. They are agreeable with the proposed plan of care and deny further needs or concerns. Patient is advised to take medications as prescribed. Patient agrees to contact the clinic with any new, worsening or increase of symptons. I am happy to see patient prior to next office visit as needed for acute concerns. 01/20/2025 Acute diverticulitis (ICD-10 - K57.92) 02/11/2025 GEOVANNA (generalized anxiety disorder) (ICD-10 - F41.1) 02/11/2025 GEOVANNA (generalized anxiety disorder) (ICD-10 - F41.1) patient here for B12 injection - clinic provided medication 03/29/2025 Obstipation (ICD-10 - K59.00) 03/29/2025 B12 deficiency (ICD-10 - E53.8) 04/01/2025 Obstipation (ICD-10 - K59.00) 01/20/2025 Depression screen (ICD-10 - Z13.31) 03/29/2025 GEOVANNA (generalized anxiety disorder) (ICD-10 - F41.1) 01/10/2025 B12 deficiency (ICD-10 - E53.8) 01/06/2025 Benzodiazepine dependence (ICD-10 - F13.20) 12/08/2024 Tobacco use disorder (ICD-10 - F17.200) 12/15/2024 Depression screen (ICD-10 - Z13.31) 10/14/2024 Cigarette smoker (ICD-10 - F17.210) 07/20/2024 Benzodiazepine dependence (ICD-10 - F13.20) 06/22/2024 Benzodiazepine dependence (ICD-10 - F13.20) 06/22/2024 Depression screen (ICD-10 - Z13.31) 10/14/2024 Depression screen (ICD-10 - Z13.31) 07/20/2024 Cigarette smoker (ICD-10 - F17.210) 01/10/2025 Benzodiazepine dependence (ICD-10 - F13.20) 01/06/2025 Bullous impetigo (ICD-10 - L01.03) 12/08/2024 Other specified bacterial agents as the cause of diseases classified elsewhere (ICD-10 - B96.89) 12/08/2024 Depression screen (ICD-10 - Z13.31) 01/06/2025 UTI symptoms (ICD-10 - R39.9) 01/10/2025 Depression screen (ICD-10 - Z13.31) 10/14/2024 Immunization not carried out because of patient refusal (ICD-10 - Z28.21) 06/22/2024 Cigarette smoker (ICD-10 - F17.210) 06/22/2024 Immunization declined (ICD-10 - Z28.21) 10/14/2024 Encounter for immunization (ICD-10 - Z23) 01/06/2025 Depression screen (ICD-10 - Z13.31) 10/14/2024 Tobacco use disorder (ICD-10 - F17.200) 08/10/2024 Other PT HERE FOR B12 INJECTION - PT PROVIDEDE MEDICATION 10/14/2024 Other Venipuncture performed by Opal Martell. Left arm/hand. One attempt. Pt tolerated well, bleeding controlled with light dressing. Lab sent to [facility] via general operations agent. Plan Of Treatment Next Appt Details Provider Name:Leroy Hu, 04/12/2025 02:00:00 PM, [address] [place] [address], [phone], Insurance Providers Payer Name Payer Address Payer Phone Subscriber Number Group Number Insured Name Patient Relationship to Insured Coverage Start Date Coverage End Date [employer] with DME [address] [address] [place] [address] [phone] [id number] MELODY TILLEY Self - patient is the insured Medications Administered Medication Instructions Date of Administration Dosage Notes Cyanocobalamin 06/22/2024 1 mg Cyanocobalamin 02/11/2025 Rocephin 01/20/2025 1 g Medical (General) History Medical History History ICD Code Back Trouble fibromyalgia Impetigo Surgical History Surgery Date(Month/Year) tonsillectomy
[2025-04-05 16:14] LABS: Glucose Urine UA Negative (Normal); Nitrate Urine Negative (Negative); Specific Gravity, Urine 1.016 (1.005-1.030)
[2025-04-05 16:18] LABS: Add Urine Microscopic? YES
[2025-04-05 16:23] LABS: Hematocrit 42.9 % (36-47); Hemoglobin 14.10 g/dL (11.27-16.99); Mean Corpuscular HGB Conc 32.9 g/dL (30-55); Mean Corpuscular Hemoglobin 29.4 pg (27-33); Mean Corpuscular Volume 89.6 fl (85-98); Nucleated Red Blood Cells % 0 %; Platelet Count 328 10^3/cmm (157-399); Red Blood Count 4.79 10^6/uL (3.85-5.65); White Blood Count 14.45 10^3/uL (3.29-11.43)
--- NOTE | 2025-04-05 16:31 | XRR_ITS ---
PROCEDURE INFORMATION: Exam: XR Abdomen Exam date and time: 04/05/2025 4:45 PM Age: 70 years old Clinical indication: Abdominal pain; Additional info: Abdominal pain with obstipation TECHNIQUE: Imaging protocol: Radiologic exam of the abdomen. Views: 2 Views. Upright and supine views. COMPARISON: CT abdomen pelvis w con* [id number] 02/22/2025 2:30 PM FINDINGS: Gastrointestinal tract: Moderate amount of scattered fecal material throughout the colon. No bowel dilation. Intraperitoneal space: Normal. No free air. Organs: Right lower pelvic calcification may be within a uterine fibroid. Bones/joints: Unremarkable for age. XR/XR abdomen min 2V [id number] IMPRESSION: No acute findings.
--- NOTE | 2025-04-05 16:35 | ED_ITS ---
HPI - Abdominal Pain 2 General: Chief Complaint: Abdominal Pain Stated Complaint: low pelvic pain Time Seen by Provider: 04/05/25 16:00 History of Present Illness: 70-year-old female who presents to the E D with complaint of lower abdominal pain over the past several months, worse in the last month. Patient was seen on 02/22/2025 in the ED and was diagnosed with diverticulitis. She was discharged home with Augmentin and hydrocodone at that time. Patient states that she continues to have abdominal pain and is not currently taking the hydrocodone because she did not tolerate it well. She was seen by an internal medicine physician recently and was started on lubiprostone, which she states is not helping her and giving her adverse side effects. She states that she has not had a normal bowel movement in several months and that she can only pass small pellets. However, she states that the pain somewhat improves after having a bowel movement. Also reports of subjective fever yesterday and chills. Denies any hematochezia, nausea, vomiting. She has also tried senna in the past and is on different supplements to try to help with her bowel movements and abdominal pain. She does admit that she only eats once a day and does not consume very much fiber. No other complaints at this time. Associated Symptoms: Reports bloating, chills, constipation and fever(s) (Subjective); Denies dysuria, hematochezia, nausea and vomiting Related Data Previous Rx's ?Medication ?Instructions ?Recorded coenzyme Q10 75 mg capsule (Ultra 75 mg PO DAILY #90 c aps 10/16/22 CoQ10) triamcinolone acetonide 0.025 % 1 applic topical BID # 15 grams 04/07/23 topical ointment budesonide 160 mcg-glycopyr 9 2 inh inhalation BID 30 days #10.7 01/16/24 mcg-formot 4.8 mcg/actuation HFA grams inhaler (Breztri Aerosphere) albuterol sulfate 90 mcg/actuation 2 puff inhalation 6 XD PRN 05/13/24 aerosol inhaler (Ventolin HFA) shortness of breath or wheezing #8.5 grams alprazolam 2 mg tablet 2 mg PO BID #60 tabs 4 carisoprodol 350 mg tablet (Soma) 350 mg PO TID #90 ta bs 05/13/24 cholecalciferol (vitamin D3) 1,250 50,000 unit PO .wee kly #12 caps 05/13/24 mcg (50,000 unit) capsule cyanocobalamin (vitamin B-12) See Rx Instructions .Rou te 05/13/24 1,000 mcg/mL injection solution .COMPLEX #1 mL diclofenac sodium 1 % topical gel See Rx Instructions .Route 05/13/24 .COMPLEX #100 grams esomeprazole magnesium 40 mg 40 mg PO DAILY #90 caps 0 05/13/24 capsule,delayed release fexofenadine 60 mg-pseudoephedrine 1 tab PO Q12H PRN a llergy symptoms 05/13/24 ER 120 mg tablet,ext.release,12 hr #30 tabs (Carmela-D 12 Hour) fluoxetine 40 mg capsule See Rx Instructions .Route 0 05/13/24 .COMPLEX #90 caps fluticasone propionate 50 1 spray intranasal DAILY #16 grams 05/13/24 mcg/actuation nasal spray,suspension (Flonase Allergy Relief) mecobalamin (vitamin B12) 1,000 1,000 mcg sublingual D AILY #90 tabs 05/13/24 mcg disintegrating tablet,sublingual montelukast 10 mg tablet 10 mg PO DAILY 90 days #90 t abs 05/13/24 rosuvastatin 5 mg tablet See Rx Instructions .Route 0 05/13/24 .COMPLEX #30 tabs tramadol 50 mg tablet 50 mg PO TID #90 tabs tretinoin 0.05 % topical cream 1 applic topical Q3D #4 5 grams 05/13/24 (Retin-A) amoxicillin 875 mg-potassium 1 tab PO BID #20 tabs clavulanate 125 mg tablet hydrocodone 5 mg-acetaminophen 325 1 tab PO Q6H PRN pa in #14 tabs 02/22/25 mg tablet ondansetron 4 mg disintegrating 4 mg PO Q8H PRN nausea and 02/22/25 tablet vomiting #14 tabs ciprofloxacin HCl 500 mg tablet 500 mg PO Q12H 10 days #20 tabs 04/05/25 metronidazole 500 mg tablet 500 mg PO Q8H 10 days #30 tabs 04/05/25 ondansetron 4 mg disintegrating 4 mg PO Q8H PRN nausea and 04/05/25 tablet vomiting 4 days #14 tabs Allergies Allergy/AdvReac Type Severity Reaction Status Date / Time aspirin Allergy Unknown Verified 04/05/25 15:59 Sulfa (Sulfonamide Allergy itching Verified 04/05/25 15:59 Antibiotics) Review of Systems 2 Const: Reports: fever(s) (Subjective) and chills Card: Denies: chest pain or palpitations Resp: Denies: dyspnea GI: Reports: abdominal pain, constipation and bloating; Denies: nausea, vomiting or hematochezia : Denies: difficulty voiding or dysuria Musc: Reports: back pain (chronic from time to time); Denies: neck pain or extremity pain Skin/Breast: Denies: rash or pruritus Neuro: Denies: headache(s) or numbness in extremities Psych: Denies: anxiety or depression PFSH ED 2 PFSH: Medical History (Updated 04/05/25 @ 19:16 by LUIS EDUARDO Jordan) Enrolled in chronic care management Anxiety Smoker Chronic back pain greater than 3 months duration GERD (gastroesophageal reflux disease) Fibromyalgia Surgical History History of nasal septoplasty Hx of nasal polypectomy History of tonsillectomy H/O dilation and curettage Family History Other Cancer Diabetes Social History Smoking and tobacco/nicotine status: tobacco/nicotine user, details unknown cigarettes Years cigarettes smoked: 10 Alcohol intake: current Alcohol intake frequency: holidays/special occasions only Alcohol type: wine Substance/Drug Use: never Household members: children Marital status: Current occupational status: retired Current gender identity: Female Physical Exam 2 Const: COMMON NORMALS: no acute distress, average body habitus and patient oriented x3 HENMT: COMMON NORMALS: normocephalic and atraumatic HEAD & SCALP: n ormocephalic and atraumatic Eye: COMMON NORMALS: Equal, round and reactive pupils present, EOMs intact bilaterally and conjunctivae normal CONJUNCTIVA: Yes conjunctivae normal P UPIL: Yes Equal, round and reactive pupils present Neck/C-Spine: COMMON NORMALS: full ROM and no lymphadenopathy Lymph: LYMPHATIC: no lymphadenopathy noted Chest: COMMONS NORMALS: normal inspection of the chest and normal palpation of entire chest wall Resp: COMMON NORMALS: normal respiratory effort, No retractions and No use of accessory muscles Cardio: COMMON NORMALS: regular rate and regular rhythm RATE: regular rate RHYTHM: regular rhythm GI: COMMON NORMALS: Soft to palpation INSPECTION: No Fluid wave present AUSCULTATION: Yes normoactive bowel sounds PALPATION: Yes Soft to palpation, Yes Tenderness to palpation present (GI), Yes Guarding due to palpation present (GI) in the RLQ, Yes Rebound tenderness present Details: McBurney's point and Yes Other GI palpation findings present (psoas +) PERCUSSION: dullness to percussion and no fluid wave : COMMON NORMALS: Yes no CVA tenderness BLADDER/KIDNEY EXAM: Yes no CVA tenderness Back/Pelvis: COMMON NORMALS: no CVA tenderness Extremity: COMMON NORMALS: normal to inspection, full ROM and capillary refill normal Neuro: COMMON NORMALS: patient oriented x3, CN's II-XII intact bilaterally and moves all extremities Psych: COMMON NORMALS: mental status grossly normal, Normal thought process present and cooperative THOUGHT PROCESS: Normal thought process present Course 2 Vital Signs: Vital signs: Vital Signs Temperature 99.5 F 04/05/25 15:53 Pulse Rate 115 H 04/05/25 20:50 Blood Pressure 132/95 04/05/25 20:50 Pulse Oximetry 95 04/05/25 20:50 Oxygen Delivery Me thod Room Air 04/05/25 20:30 MDM - Abdominal Pain Medical Decision Making 70-year-old female with right lower quadrant abdominal pain, leukocytosis. X- rays nonspecific. Will change to a CT. After CT, she was noted to have a sigmoid diverticulitis. I went over diet, antibiotics with patient. She does not have an abscess. I discussed abscess, and if there was an issue what to do at that point. I have advised her to return to ED for any worsening pain. She will need close follow-up. I have advised her to contact her physician tomorrow for a follow-up into this week or first of next week. Lab Data 04/05/25 16:07 04/05/25 16:07 Labs/Radiology: Radiology Impressions Abdomen X-Ray 04/05/25 16:31 IMPRESSION: No acute findings. Abdomen/Pelvis CT 04/05/25 17:02 IMPRESSION: Diverticulitis involving the sigmoid colon and the splenic flexure of the colon. The length of involved colon and degree of inflammatory changes adjacent to the regions of diverticulitis have increased compared to exam from February 22, 2025. No evidence of perforation or drainable abscess. Laboratory Results WBC 14.45 10^3/uL (3.29-11.43) H 04/05/25 16:07 RBC 4.79 10^6/uL (3.85-5.65) 04/05/25 16:07 Hgb 14.10 g/dL (11.27-16.99) 04/05/25 16:07 Hct 42.9 % (36-47) 04/05/25 16:07 MCV 89.6 fl (85-98) 04/05/25 16:07 MCH 29.4 pg (27-33) 04/05/25 16:07 MCHC 32.9 g/dL (30-55) 04/05/25 16:07 RDW 13.2 % (12.1-15.1) 04/05/25 16:07 Plt Count 328 10^3/cmm (157-399) 04/05/25 16:07 MPV 10.3 fL (7.4-10.4) 04/05/25 16:07 Neut % (Auto) 72.2 % 04/05/25 16:07 Lymph % (Auto) 18.4 % 04/05/25 16:07 [place] % (Auto) 8.3 % 04/05/25 16:07 Eos % (Auto) 0.5 % 04/05/25 16:07 Baso % (Auto) 0.3 % 04/05/25 16:07 Neut # (Auto) 10.43 10^3/uL (1.8-7.7) H 04/05/25 16:07 Lymph # (Auto) 2.7 10^3/uL (0.8-4.8) 04/05/25 16:07 [place] # (Auto) 1.2 10^3/uL (0.2-0.9) H 04/05/25 16:07 Eos # (Auto) 0.1 10^3/uL (0.0-0.8) 04/05/25 16:07 Baso # (Auto) 0.0 10^3/uL (0.0-0.1) 04/05/25 16:07 Nucleated RBC % (auto) 0 % 04/05/25 16:07 Nucleated RBCs # 0.0 /100WBC 04/05/25 16:07 Sodium 135 mmol/L (136-145) L 04/05/25 16:07 Potassium 4.0 mmol/L (3.5-5.1) 04/05/25 16:07 Chloride 99 mmol/L (98-107) 04/05/25 16:07 Carbon Dioxide 23 mmol/L (22-29) 04/05/25 16:07 Anion Gap 17.0 (5-19) 04/05/25 16:07 BUN 11 mg/dL (8-23) 04/05/25 16:07 Creatinine 0.7 mg/dL (0.5-0.9) 04/05/25 16:07 GFR Calculation Not Reportable 04/05/25 16:07 Glucose 103 mg/dL (65-115) 04/05/25 16:07 Calculated Osmolality 280 mOsm/kg (285-295) L 04/05/25 16:07 Lactic Acid 1.0 mmol/L (0.5-2.2) 04/05/25 16:07 Calcium 9.1 mg/dL (8.5-10.5) 04/05/25 16:07 Total Bilirubin 0.2 mg/dL (0.15-1.2) 04/05/25 16:07 AST 16 U/L (0-32) 04/05/25 16:07 ALT 12 U/L (0-33) 04/05/25 16:07 Alkaline Phosphatase 89 U/L (35-105) 04/05/25 16:07 Total Protein 6.9 g/dL (6.6-8.7) 04/05/25 16:07 Albumin 3.7 g/dL (3.5-5.2) 04/05/25 16:07 Globulin 3.2 g/dL (1.3-4.6) 04/05/25 16:07 Lipase 21 U/L (13-60) 04/05/25 16:07 Urine Color Yellow (Yellow) 04/05/25 15:44 Urine Appearance Clear (CLEAR) 04/05/25 15:44 Urine pH 7.0 (5-7) 04/05/25 15:44 Ur Specific [place] 1.016 (1.005-1.030) 04/05/25 15:44 Urine Protein 1+ (Negative) A 04/05/25 15:44 Urine Glucose (UA) Negative (Normal) 04/05/25 15:44 Urine Ketones Trace (Negative) 04/05/25 15:44 Urine Blood 3+ (Negative) A 04/05/25 15:44 Urine Nitrate Negative (Negative) 04/05/25 15:44 Urine Bilirubin Negative (Negative) 04/05/25 15:44 Urine Urobilinogen 1.0 mg/dL (Negative) 04/05/25 15:44 Ur Leukocyte Esterase 1+ (Negative) A 04/05/25 15:44 Urine RBC 51-100 /hpf (0-2) H 04/05/25 15:44 Urine WBC 0-5 /hpf (0-5) 04/05/25 15:44 Ur Squamous Epith Cells 0-5 /hpf (0-5) 04/05/25 15:44 Amorphous Sediment Not Reportable 04/05/25 15:44 Urine Bacteria None seen /hpf (NONE) 04/05/25 15:44 Hyaline Casts 0.81 /lpf 04/05/25 15:44 All radiology interpretation(s) finalized by discharge Discharge Plan Discharge Patient Disposition: Home Clinical Impression: Diverticulitis Condition: Stable Prescriptions: New metronidazole 500 mg tablet 500 mg PO Q8H 10 Days Qty: 30 0RF ciprofloxacin HCl 500 mg tablet 500 mg PO Q12H 10 Days Qty: 20 0RF ondansetron 4 mg tablet,disintegrating 4 mg PO Q8H PRN (Reason: nausea and vomiting) 4 Days Qty: 14 0RF No Action triamcinolone acetonide 0.025 % ointment 1 applic topical BID Qty: 15 0RF albuterol sulfate [Ventolin HFA] 90 mcg/actuation HFA aerosol inhaler 2 puff inhalation 6XD PRN (Reason: shortness of breath or wheezing) Qty: 8.5 6RF alprazolam 2 mg tablet 2 mg PO BID Qty: 60 3RF carisoprodol [Soma] 350 mg tablet 350 mg PO TID Qty: 90 3RF cholecalciferol (vitamin D3) 1,250 mcg (50,000 unit) capsule 50,000 unit PO .weekly Qty: 12 3RF cyanocobalamin (vitamin B-12) 1,000 mcg/mL solution See Rx Instructions .ROUTE .COMPLEX Qty: 1 5RF Dose Instruction: INJECT 1000MCG INTRAMUSCULARLY MONTHLY Rx Instructions: INJECT 1000MCG INTRAMUSCULARLY MONTHLY diclofenac sodium 1 % gel See Rx Instructions .ROUTE .COMPLEX Qty: 100 0RF Dose Instruction: APPLY 2 GRAMS FOUR TIMES A DAY TO SINGLE ELBOW, WRIST OR HAND (INCLUDES PALM, FINGERS AND BACK OF HAND) Rx Instructions: APPLY 2 GRAMS FOUR TIMES A DAY TO SINGLE ELBOW, WRIST OR HAND (INCLUDES PALM, FINGERS AND BACK OF HAND) esomeprazole magnesium 40 mg capsule,delayed release(DR/EC) 40 mg PO DAILY Qty: 90 1RF fexofenadine-pseudoephedrine [Carmela-D 12 Hour] 60-120 mg tablet extended release 12 hr 1 tab PO Q12H PRN (Reason: allergy symptoms) Qty: 30 0RF fluoxetine 40 mg capsule See Rx Instructions .ROUTE .COMPLEX Qty: 90 1RF Dose Instruction: Take 1 capsule by mouth once daily Rx Instructions: Take 1 capsule by mouth once daily fluticasone propionate [Flonase Allergy Relief] 50 mcg/actuation spray,suspension 1 spray intranasal DAILY Qty: 16 3RF Rx Instructions: administer into each nostril mecobalamin (vitamin B12) 1,000 mcg tablet,disintegrating 1,000 mcg sublingual DAILY Qty: 90 4RF Rx Instructions: place tablet under tongue and allow to dissolve for at least30 secs before swallowing montelukast 10 mg tablet 10 mg PO DAILY 90 Days Qty: 90 2RF rosuvastatin 5 mg tablet See Rx Instructions .ROUTE .COMPLEX Qty: 30 3RF Dose Instruction: Take 1 tablet by mouth once daily Rx Instructions: Take 1 tablet by mouth once daily tramadol 50 mg tablet 50 mg PO TID Qty: 90 2RF tretinoin [Retin-A] 0.05 % cream 1 applic topical Q3D Qty: 45 0RF Breztri Aerosphere 160-9-4.8 mcg/actuation HFA aerosol inhaler 2 inh inhalation BID 30 Days Qty: 10.7 3RF Ultra CoQ10 75 mg capsule 75 mg PO DAILY Qty: 90 1RF amoxicillin-pot clavulanate 875-125 mg tablet 1 tab PO BID Qty: 20 0RF hydrocodone-acetaminophen 5-325 mg tablet 1 tab PO Q6H PRN (Reason: pain) Qty: 14 0RF ondansetron 4 mg tablet,disintegrating 4 mg PO Q8H PRN (Reason: nausea and vomiting) Qty: 14 0RF Discharge Orders: Discharge ED (Routine); Ordered 04/05/25 Ordered By: Tigist Xavier Referrals: Lam Hu MD [Primary Care Provider, Internal Medicine] Discharge Diet: Clear Liquid Patient Instructions: Diverticulitis (ED), Clear Liquid Diet (ED), Full Liquid Diet (DC), Patient Portal & Nancy Instructions Activity Restrictions/Additional Instructions: Clear liquid diet only x 48 hours, then may advance to full liquid diet for an additional 24-48 hours. If you tolerate both of these steps, you may advance to a bland diet. Obtain a probiotic or eat active culture yogurt to avoid infectious diarrhea. Call your doctor tomorrow to follow-up regarding your diverticulitis. Return to ED for worsening pain. When you increase your diet, if you have worsening pain, reduce your diet back to liquid or full. If you have a fever greater than 100.4 ?F with the association of worsening pain, return to ED. Print Language: Trinidadian Coding Level of Care Code ED Grain Trimmer for Momo Osei
[2025-04-05 16:42] LABS: Alanine Aminotransferase 12 U/L (0-33); Albumin Level 3.7 g/dL (3.5-5.2); Alkaline Phosphatase 89 U/L (35-105); Anion Gap 17.0 (5-19); Aspartate Amino Transferase 16 U/L (0-32); Blood Urea Nitrogen 11 mg/dL (8-23); Calcium 9.1 mg/dL (8.5-10.5); Carbon Dioxide 23 mmol/L (22-29); Chloride 99 mmol/L (98-107); Creatinine Clr Calc Pharmacy 58.9856; Globulin 3.2 g/dL (1.3-4.6); Glucose 103 mg/dL (65-115); Lipase 21 U/L (13-60); Osmolality Calculated 280 mOsm/kg (285-295); Potassium 4.0 mmol/L (3.5-5.1); Sodium 135 mmol/L (136-145); Total Protein 6.9 g/dL (6.6-8.7)
--- NOTE | 2025-04-05 17:02 | CTR_ITS ---
PROCEDURE INFORMATION: Exam: CT Abdomen And Pelvis Without Contrast Exam date and time: 04/05/2025 5:58 PM Age: 70 years old Clinical indication: Abdominal pain; Localized; Right lower quadrant (rlq); Additional info: Rlq pain, positive psoas, rbc in ua TECHNIQUE: Imaging protocol: Computed tomography of the abdomen and pelvis without contrast. Radiation optimization: All CT scans at this facility use at least one of these dose optimization techniques: automated exposure control; mA and/or kV adjustment per patient size (includes targeted exams where dose is matched to clinical indication); or iterative reconstruction. COMPARISON: CT abdomen pelvis w con* [id number] 02/22/2025 2:30 PM RADIATION DOSE METRICS: Total DLP (mGy-cm): 517.15 FINDINGS: Lungs: Visualized lung bases are unremarkable. Liver: Normal. No mass. Gallbladder and biliary ducts: Normal. No calcified stones. No ductal dilation. Pancreas: Normal. No ductal dilation. Spleen: Normal. No splenomegaly. Adrenal glands: Normal. No mass. Kidneys and ureters: Normal. No hydronephrosis. Stomach and bowel: Sigmoid diverticulitis without evidence of perforation or abscess. The length of involved colon has increased with increased adjacent stranding compared to exam from February 22, 2025. There is another region diverticulitis near the splenic flexure without evidence of perforation abscess. Appendix: No evidence of appendicitis. Intraperitoneal space: Unremarkable. No free air. No significant fluid collection. Vasculature: Atherosclerosis. No abdominal aortic aneurysm. Lymph nodes: Unremarkable. No enlarged lymph nodes. Urinary bladder: Unremarkable as visualized. Reproductive: Unchanged calcified uterine fibroids. Bones/joints: Unremarkable. No acute fracture. Soft tissues: Unremarkable. CT/CT abdomen pelvis con [id number] IMPRESSION: Diverticulitis involving the sigmoid colon and the splenic flexure of the colon. The length of involved colon and degree of inflammatory changes adjacent to the regions of diverticulitis have increased compared to exam from February 22, 2025. No evidence of perforation or drainable abscess.
[2025-04-05 17:04] LABS: Lactic Sepsis W/Reflex 1.0 mmol/L (0.5-2.2)
[2025-04-05] MEDS: metroNIDAZOLE IV 500 MG/100 ML PREMIX 100 MG IV (19:38)
[2025-04-05] MEDS: ondansetron 2 mg/ML SDV 2 mL 4 MG IVP (19:43)
== END 2025-04-05 20:51 | disposition home or self-care (01) ==
PROVIDERS: Emergency Medicine; Emergency Provider Physician Assistant; PCP Internal Medicine
DX: K57.92 Diverticulitis of intestine, part unspecified, without perforation or abscess without bleeding (principal); F17.210 Nicotine dependence, cigarettes, uncomplicated
CPT/HCPCS: 36415; 74019; 74176; 80053; 81001; 83605; 83690; 85025; 87086; 96365; 96367; 96375; 99285; J0744; J2405; J3490; J7030

== ENCOUNTER 2025-04-08 10:26 | Emergency (ER) | payer MEDICARE, SELFPAY ==
--- OUTSIDE RECORDS SUMMARY | 2025-04-01 06:00 | XMS_ITS ---
Author Organization [facility] Address [address] [place] [address] Care Team Providers Care Senior Software Project Manager Name Role Phone Leroy Hu Primary Care Provider Allergies Allergen (clinical drug ingredient) Drug/Non Drug Allergy documented on EMR Reaction Allergy Type Onset Date Status aspirin Aspirin Unknown Drug Allergy Active Substance with sulfonamide structure and antibacterial mechanism of action (substance) Sulfa Antibiotics Unknown Drug Allergy Active REASON FOR VISIT MEDICATION Medications Medication SIG (Take, Route, Frequency, Duration) Notes Start Date End Date Status Vitamin D3 1.25 MG (79932 UT) Capsule 1 capsule Orally Active Vilazodone [...] 04/01/2025 Encounters Encounter Location Date Provider Diagnosis [facility] [address] [place] [phone] 04/01/2025 Leroy Hu Obstipation K59.00 Assessments Encounter [...] Provider Name:Leroy Hu, 04/12/2025 02:00:00 PM, [address], [phone], History and Physical Notes * HPI (History [...] * NATHAN TILLEYB:1955 ( 70 yo F)Acc No.[id number]:04/01/2025 Patient: MELODY ANDERSON Provider: Rocky Hu MD :1955 A ge:70 Y S ex:Female Date:04/01/2025 Address:[address] [place], [place] [phone] Check Out:11:34 AM 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 * Procedure Codes: 3079F DIAST BP 80-89 MM HG. 3077F SYST BP = 140 MM HG6 IT. 1159F MED LIST DOCD IN RCRD. 1160F RVW MEDS BY RX/DR IN RCRD. 1125F AMNT PAIN NOTED PAIN PRSNT. * Sign off status: Completed true * Provider: Rocky Hu MD Date: 0 04/01/2025 Generated for Marcie david/Forrest/Carolitting on: 0 04/08/2025 10:35 AM CDT
--- OUTSIDE RECORDS SUMMARY | 2025-04-08 10:35 | XMS_ITS | Patient Health Record ---
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 Role Phone Leroy Hu Primary Care Provider Allergies Allergen (clinical drug ingredient) Drug/Non Drug Allergy documented on EMR Reaction Allergy Type Onset Date Status aspirin Aspirin Unknown Drug Allergy Active Substance with sulfonamide structure and antibacterial mechanism of action (substance) Sulfa Antibiotics Unknown Drug Allergy Active Results Component Value Reference Range Flag Notes Vitamin B12 (B) 89933 Reviewed date:10/28/2024 01:09:20 PM Interpretation: Performing Lab: Notes/Report: Diagnosis Description: Deficiency of other specified B group vitamins KtzxgjwS79 >1999 211-911 pg/mL FL Comprehensive Metabolic Pane l (CMP) 07978 Reviewed date:10/28/2024 12:16:47 PM Interpretation: Performing Lab: Notes/Report: Diagnosis Description: Deficiency of other specified B group vitamins Glucose Serum 90 71-110 MG/DL Testing p erformed at [facility], [address] [place] [address] [place] [address]. CLIA ID#: [id number] BUN 11 7-21 MG/DL Creat .79 .51-1.17 MG/DL O-syeejj-b-benzoquinone imine (NAPQI) is a metabolite of acetaminophen, [...] 12-78 UNIT/L Osmo Serum,Calculated 293 280-300 MOSM/KG CBC w\ Auto Diff 86607 Reviewed date:10/28/2024 12:16:41 PM Interpretation: Performing Lab: [...] 40.0-70.0 % Lymph Auto% 30.1 22.0-44.0 % [place] Auto% 7.4 3.0-7.0 % HI Eos Auto% .3 2.0-4.0 % LOW Baso Auto% 0.4 0.0-1.0 % Imm Gran% .3 .0-.4 % Neutro Abs 5.81 .80-7.70 Absolute Neutrophil Count 5810 NA Lymph Abs 2.85 .10-4.10 [place] Abs .70 .20-1.00 Eos Abs .03 .00-.40 Baso Abs .04 .00-.20 Imm Gran Abs .03 .00-.10 NRBC# .00 .00-.20 X10'3 NRBC% .00 .00-.20 /100 int act WBC's Lipid Panel Reflex DLDL 8006 1, 37378 Reviewed date:10/29/2024 11:54:09 AM Interpretation: Performing Lab: [...] See DLDL result. Thyroid Stimulating Hormone (TSH) 79502 Reviewed date:10/28/2024 12:16:15 PM Interpretation: Performing Lab: Notes/Report: Diagnosis Description: Deficiency of other specified B group vitamins TSH 1.194 .358-3.740 MlU/ML Bilat Diagnostic Mammogram - 61370 Reviewed date:12/29/2024 03:59:11 PM Interpretation: Performing Lab: Notes/Report: UA Dip / Urinalysis, Routine , Manual - 65875 Reviewed date:01/06/2025 02:42:43 PM Interpretation: Performing Lab: Notes/Report: Color Yellow Clarity Clear Glucose - Bilirubin - Ketones - Specific [place] 1.010 Blood +++ Large pH 5.0 Protein - Urobilinogen,Semi-Qn 0.2 Nitrite, Urine - Leukocytes + Small Reason For Referral No Information Medications Medication SIG (Take, Route, Frequency, Duration) Notes Start Date End Date Status Triamcinolone Acetonide 0.025 % Ointment 1 application Externally Twice a day Active Ultra COQ10 75 MG Capsule as directed Orally daily 200mg gummies Active Vitamin D3 1.25 MG (56506 UT) Capsule 1 capsule Orally Active ALPRAZolam [...] W/U Status Risk Notes Problem Chronic sinusitis (71984638) Chronic sinusitis, unspecified (J32.9) Active confirmed Problem Bullous impetigo (352115427) Bullous impetigo (L01.03) Active confirmed Problem Generalized anxiety disorder (39830383) GEOVANNA (generalized anxiety disorder) (F41.1) Active confirmed Problem Obstipation (834984737) Obstipation (K59.00) Active confirmed Problem Vitamin B12 deficiency (non anemic) (89246848) B12 deficiency (E53.8) Active confirmed Problem Diverticulitis of colon (492524296) Acute diverticulitis (K57.92) Active confirmed Problem Tobacco use (181991214) Tobacco use disorder (F17.200) Active confirmed Problem Benzodiazepine dependence (759083794) Benzodiazepine dependence (F13.20) Active confirmed Vital Signs Heart Rate 124 /min 04/01/2025 Temperature 97.5 degrees Fahrenheit 04/01/2025 Height-cm 162.56 cm 04/01/2025 Oximetry 98 % 04/01/2025 Blood pressure diastolic 80 mm Hg 04/01/2025 Weight-kg 66.23 kg 04/01/2025 Height 64 in 04/01/2025 Blood pressure systolic 140 mm Hg 04/01/2025 Weight 146 lbs 04/01/2025 BMI 25.06 kg/m2 04/01/2025 Encounters Encounter Location Date Provider Diagnosis [facility] [address] [address] 01/06/2025 Leroy Hu B12 deficiency E53.8 ; GEOVANNA (generalized anxiety disorder) F41.1 ; Benzodiazepine dependence F13.20 ; Bullous impetigo L01.03 ; UTI symptoms R39.9 and Depression screen Z13.31 [facility] [address] [address] 12/15/2024 Leroy Hu GEOVANNA (generalized anxiety disorder) F41.1 and Depression screen Z13.31 [facility] [address] [address] 10/14/2024 Leroy Hu B12 deficiency E53.8 ; Benzodiazepine dependence F13.20 ; Cigarette smoker F17.210 ; Depression screen Z13.31 ; Immunization not carried out because of patient refusal Z28.21 ; Encounter for immunization Z23 and Tobacco use disorder F17.200 [facility] [address] [address] 07/20/2024 Leroy Hu GEOVANNA (generalized anxiety disorder) F41.1 ; B12 deficiency E53.8 ; Benzodiazepine dependence F13.20 and Cigarette smoker F17.210 [facility] [address] [address] 07/21/2024 Leroy Hu B12 deficiency E53.8 [facility] [address] [address] 02/11/2025 Leroy Hu GEOVANNA (generalized anxiety disorder) F41.1 [facility] [address] [address] 06/22/2024 Leroy Hu B12 deficiency E53.8 ; GEOVANNA (generalized anxiety disorder) F41.1 ; Benzodiazepine dependence F13.20 ; Depression screen Z13.31 ; Cigarette smoker F17.210 and Immunization declined Z28.21 [facility] [address] [address] 04/01/2025 Leroy Hu Obstipation K59.00 [facility] [address] [address] 03/29/2025 Leroy Hu Obstipation K59.00 ; B12 deficiency E53.8 and GEOVANNA (generalized anxiety disorder) F41.1 [facility] [address] [place] [address] 01/20/2025 Leroy Hu Acute diverticulitis K57.92 and Depression screen Z13.31 [facility] [address] [address] 01/10/2025 Leroy Hu Bullous impetigo L01.03 ; B12 deficiency E53.8 ; Benzodiazepine dependence F13.20 and Depression screen Z13.31 [facility] [address] [address] 08/10/2024 Leroy Hu B12 deficiency E53.8 [facility] [address] [address] 12/08/2024 Leroy Hu B12 deficiency E53.8 ; Chronic sinusitis, unspecified J32.9 ; Tobacco use disorder F17.200 ; Other specified bacterial agents as the cause of diseases classified elsewhere B96.89 and Depression screen Z13.31 [facility] [address] [address] 2025 Leroy Hu [facility] [address] [place] [address] 02/11/2025 Leroy Hu GEOVANNA (generalized anxiety disorder) F41.1 [facility] [address] [place] [address] 12/16/2024 Leroy [facility] [address] [place] [phone] 12/15/2024 Leroy Hu Breast lesion on mammography R92.8 [facility] [address] [place] [address] 11/16/2024 Leroy Hu [facility] [address] [place] [address] 11/12/2024 Leroy Hu [facility] [address] [place] [address] 10/14/2024 Leroy [facility] [address] [place] [address] 10/14/2024 Leroy [facility] [address] [place] [address] 10/14/2024 Leroy Hu [facility] [address] [place] [address] 09/09/2024 Leroy Hu Assessments Encounter Date Diagnosis [...] controlled with light dressing. Lab sent to [facility] via sandblast or shotblast equipment tender. Plan Of Treatment Next Appt Details Provider Name:Leroy Hu, 04/12/2025 02:00:00 PM, [address] [place] [address], [phone], Insurance Providers Payer Name Payer Address Payer Phone Subscriber Number Group Number Insured Name Patient Relationship to Insured Coverage Start Date Coverage End Date [employer] with DME [address] [address] [place] [phone] [id number] MELODY TILLEY Self - patient is the insured Medications Administered Medication Instructions Date of Administration Dosage Notes Cyanocobalamin 06/22/2024 1 mg Cyanocobalamin 02/11/2025 Rocephin 01/20/2025 1 g Medical (General) History Medical History History ICD Code Back Trouble fibromyalgia Impetigo Surgical History Surgery Date(Month/Year) tonsillectomy
--- OUTSIDE RECORDS SUMMARY | 2025-04-08 10:35 | XMS_ITS | Clinical Summary ---
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 Active coenzyme Q10 200 mg Capsule Take 200 mg by mouth daily. Active sodium chloride (OCEAN) 0.65 % Aerosol, [place] Administer in each nostril PRN for Allergies. [...] Comments Blood Pressure 180/83 07/30/2023 3:25 PM MEAT STUFFER Pulse 86 07/30/2023 3:25 PM MEAT STUFFER Temperature 36.3 C (97.3 F) 07/30/2023 3:25 PM MEAT STUFFER Respiratory Rate 14 07/30/2023 3:18 PM MEAT STUFFER Oxygen Saturation 97% 07/30/2023 3:25 PM MEAT STUFFER Inhaled Oxygen Concentration - - Weight 69.5 kg (153 lb 4 oz) 07/30/2023 1:48 PM MEAT STUFFER Height 161.9 cm (5' 3.75 ) 07/30/2023 1:48 PM CS T Body Mass Index 26.51 07/30/2023 1:48 PM MEAT STUFFER Plan of Treatment Health Maintenance Due Date [...] Tdap) 11/07/2031 Medical Devices Implanted Type Area Property Utilization Manager Device Identifier Shelf Expiration Date Model / Serial / Lot Lens Iol [employer] Eyhance 24.0 [id number] - [id number] Implanted:Qty: 1 on 05/27/2023 by John Reyes MD at [facility] Left: Eye [employer] 2026 [id number] / [id number] / Lens Iol Tecnis Eyhance 24.0 [id number] - [id number] Implanted:Qty: 1 on 06/18/2023 by John Reyes MD at [facility] Right: Eye [employer] 03/09/2026 [id number] / [id number] / [place] [address] [place] [address] Advance Directives For more information, please contact: [phone] * Full Code (Latest Code Status on File) Date Activated Date Inactivated Comments 06/18/2023 12:18 PM 06/18/2023 5:06 PM * Full Code Date Activated Date Inactivated Comments 05/27/2023 8:59 AM 05/27/2023 1:43 PM
[2025-04-08 10:41] VITALS: BP 134/80; PULSE 94; RESP 18; TEMP 36.8; O2SAT 98; BMI 25.8
--- NOTE | 2025-04-08 11:08 | W.ED.ABDPA2 ---
HPI - Abdominal Pain General: Chief Complaint: Allergic Reaction Stated Complaint: reaction to meds Time Seen by Provider: 04/08/25 10:31 Source: patient Mode of arrival: ambulatory Limitations: no limitations History of Present Illness: Patient is a 70-year-old female presents to ED today complaining of chronic abdominal pain and constipation. Patient states that has been months since she has reportedly had a normal bowel movement. She does have a previous history of diverticulitis. She was seen here 2 days ago and diagnosed with diverticulitis and placed on Cipro/Flagyl. Patient feels that she is dehydrated as her mouth and lips are dry. She does have an appointment scheduled with Dr. Kimbrough for next week. She sees Dr. Hu for her PCP. Patient is not having any vomiting. No fevers. MD elicited complaint: abdominal pain Pertinent past history: constipation and other (diverticulitis) Onset (ago): day(s) Pain Consistency: constant Location: LLQ, Suprapubic and Pelvis Severity: moderate Quality: aching, fullness and other (bloating) Radiation: none Migration to: no migration Exacerbating factors: nothing Relieving factors: nothing Associated Symptoms: Reports change in bowel habits and constipation; Denies chills, dysuria, fever(s), hematochezia, melena, nausea and vomiting Related Data Previous Rx's ?Medication ?Instructions ?Recorded coenzyme Q10 75 mg capsule (Ultra 75 mg PO DAILY #90 caps 10/16/22 CoQ10) triamcinolone acetonide 0.025 % 1 applic topical BID #15 grams 04/07/23 topical ointment budesonide 160 mcg-glycopyr 9 2 inh inhalation BID 30 days #10.7 01/16/24 mcg-formot 4.8 mcg/actuation HFA grams inhaler (Breztri Aerosphere) albuterol sulfate 90 mcg/actuation 2 puff inhalation 6XD PRN 05/13/24 aerosol inhaler (Ventolin HFA) shortness of breath or wheezing #8.5 grams alprazolam 2 mg tablet 2 mg PO BID #60 tabs 05/13/24 carisoprodol 350 mg tablet (Soma) 350 mg PO TID #90 tabs 05/13/24 cholecalciferol (vitamin D3) 1,250 50,000 unit PO .weekly #12 caps 05/13/24 mcg (50,000 unit) capsule cyanocobalamin (vitamin B-12) See Rx Instructions .Route 05/13/24 1,000 mcg/mL injection solution .COMPLEX #1 mL diclofenac sodium 1 % topical gel See Rx Instructions .Route 05/13/24 .COMPLEX #100 grams esomeprazole magnesium 40 mg 40 mg PO DAILY #90 caps 05/13/24 capsule,delayed release fexofenadine 60 mg-pseudoephedrine 1 tab PO Q12H PRN allergy symptoms 05/13/24 ER 120 mg tablet,ext.release,12 hr #30 tabs (Carmela-D 12 Hour) fluoxetine 40 mg capsule See Rx Instructions .Route 05/13/24 .COMPLEX #90 caps fluticasone propionate 50 1 spray intranasal DAILY #16 grams 05/13/24 mcg/actuation nasal spray,suspension (Flonase Allergy Relief) mecobalamin (vitamin B12) 1,000 1,000 mcg sublingual DAILY #90 tabs 05/13/24 mcg disintegrating tablet,sublingual montelukast 10 mg tablet 10 mg PO DAILY 90 days #90 tabs 05/13/24 rosuvastatin 5 mg tablet See Rx Instructions .Route 05/13/24 .COMPLEX #30 tabs tramadol 50 mg tablet 50 mg PO TID #90 tabs 05/13/24 tretinoin 0.05 % topical cream 1 applic topical Q3D #45 grams 05/13/24 (Retin-A) amoxicillin 875 mg-potassium 1 tab PO BID #20 tabs 02/22/25 clavulanate 125 mg tablet hydrocodone 5 mg-acetaminophen 325 1 tab PO Q6H PRN pain #14 tabs 02/22/25 mg tablet ondansetron 4 mg disintegrating 4 mg PO Q8H PRN nausea and 02/22/25 tablet vomiting #14 tabs ciprofloxacin HCl 500 mg tablet 500 mg PO Q12H 10 days #20 tabs 04/05/25 metronidazole 500 mg tablet 500 mg PO Q8H 10 days #30 tabs 04/05/25 ondansetron 4 mg disintegrating 4 mg PO Q8H PRN nausea and 04/05/25 tablet vomiting 4 days #14 tabs Allergies Allergy/AdvReac Type Severity Reaction Status Date / Time aspirin Allergy Unknown Verified 04/08/25 10:47 Sulfa (Sulfonamide Allergy itching Verified 04/08/25 10:47 Antibiotics) Review of Systems Const: Denies: fever(s), chills, body aches, fatigue or malaise Card: Denies: chest pain Resp: Denies: dyspnea GI: Reports: abdominal pain, constipation and change in bowel habits; Denies: nausea, vomiting, hematochezia, melena or white/light colored stool : Denies: flank pain, difficulty voiding, dysuria, urinary frequency, urinary urgency or urinary hesitancy Musc: Denies: neck pain, back pain, extremity pain, extremity swelling, joint pain, joint swelling or joint redness Skin/Breast: Denies: rash Neuro: Denies: headache(s), numbness in extremities, weakness in extremities, sensory changes or dizziness PFSH ED PFSH: Medical History Enrolled in chronic care management Anxiety Smoker Chronic back pain greater than 3 months duration GERD (gastroesophageal reflux disease) Fibromyalgia Surgical History History of nasal septoplasty Hx of nasal polypectomy History of tonsillectomy H/O dilation and curettage Family History Other Cancer Diabetes Social History Smoking and tobacco/nicotine status: tobacco/nicotine user, details unknown cigarettes Years cigarettes smoked: 10 Alcohol intake: current Alcohol intake frequency: holidays/special occasions only Alcohol type: wine Substance/Drug Use: never Household members: children Marital status: Current occupational status: retired Current gender identity: Female Physical Exam Const: COMMON NORMALS: no acute distress, average body habitus, patient oriented x3, no limitations, healthy appearing, alert and well nourished HENMT: COMMON NORMALS: normocephalic and atraumatic HEAD & SCALP: normal to inspection, normocephalic and atraumatic Eye: COMMON NORMALS: no scleral icterus Neck/C-Spine: COMMON NORMALS: full ROM, no lymphadenopathy, supple and no meningeal signs Chest: COMMONS NORMALS: normal inspection of the chest Resp: COMMON NORMALS: normal respiratory effort and clear to auscultation bilaterally AUSCULTATION: clear to auscultation bilaterally Cardio: COMMON NORMALS: regular rate and regular rhythm RATE: regular rate RHYTHM: regular rhythm GI: COMMON NORMALS: Normal to inspection, nondistended, normoactive bowel sounds present, Soft to palpation, non-tender, No hepatosplenomegaly present and no masses PALPATION: Yes Soft to palpation and Yes No hepatosplenomegaly present : COMMON NORMALS: Yes no CVA tenderness BLADDER/KIDNEY EXAM: Yes no CVA tenderness Back/Pelvis: COMMON NORMALS: no CVA tenderness and thoracic and lumbar spine normal to inspection Extremity: COMMON NORMALS: normal to inspection Neuro: COMMON NORMALS: patient oriented x3 SENSORIUM/ORIENTATION: Yes alert MENINGEAL SIGNS: Yes no meningeal signs Skin: COMMON NORMALS: no rashes or lesions noted GENERAL SKIN EXAM: no rashes or lesions noted Course Vital Signs: Vital signs: Vital Signs Temperature 98.3 F 04/08/25 10:41 Pulse Rate 94 04/08/25 10:41 Respiratory Rate 18 04/08/25 10:41 Blood Pressure 134/80 04/08/25 10:41 Pulse Oximetry 98 04/08/25 10:41 Oxygen Delivery Me thod Room Air 04/08/25 10:41 MDM - Abdominal Pain Medical Decision Making Patient CT scan from 2 days ago was reviewed and showing sigmoid diverticulitis. She was placed on Cipro and Flagyl on last ED visit and seems to be tolerating this well. Her vital signs are stable. White count on her last visit 2 days ago was roughly 14.5. It is normal today. She is not having any signs or symptoms consistent with abscess or perforation. She does have follow-up with general surgery scheduled for next week. Patient concerned that her bloating and pain may not be related to her diverticulitis. We discussed other etiologies. She states she is not up-to-date on her well woman exams and it has been many many years since she has had one. Discussed referral to [facility] women's health which she is agreeable to. She also has a history of chronic hematuria. She is a smoker. We spoke about possibly seeing a urologist for a cystoscopy. She seems agreeable to this as well. Signs and symptoms that should prompt a return emergency visit related to her current diverticulitis flare were discussed. Medical Records I reviewed the patient's medical records. Lab Data I reviewed the patient's lab results. 04/08/25 11:11 04/08/25 11:11 Labs/Radiology: Laboratory Results WBC 8.89 10^3/uL (3.29-11.43) 04/08/25 11:11 RBC 4.86 10^6/uL (3.85-5.65) 04/08/25 11:11 Hgb 14.30 g/dL (11.27-16.99) 04/08/25 11:11 Hct 43.0 % (36-47) 04/08/25 11:11 MCV 88.5 fl (85-98) 04/08/25 11:11 MCH 29.4 pg (27-33) 04/08/25 11:11 MCHC 33.3 g/dL (30-55) 04/08/25 11:11 RDW 13.0 % (12.1-15.1) 04/08/25 11:11 Plt Count 377 10^3/cmm (157-399) 04/08/25 11:11 MPV 10.0 fL (7.4-10.4) 04/08/25 11:11 Neut % (Auto) 71.8 % 04/08/25 11:11 Lymph % (Auto) 18.9 % 04/08/25 11:11 [place] % (Auto) 7.8 % 04/08/25 11:11 Eos % (Auto) 0.9 % 04/08/25 11:11 Baso % (Auto) 0.3 % 04/08/25 11:11 Neut # (Auto) 6.38 10^3/uL (1.8-7.7) 04/08/25 11:11 Lymph # (Auto) 1.7 10^3/uL (0.8-4.8) 04/08/25 11:11 [place] # (Auto) 0.7 10^3/uL (0.2-0.9) 04/08/25 11:11 Eos # (Auto) 0.1 10^3/uL (0.0-0.8) 04/08/25 11:11 Baso # (Auto) 0.0 10^3/uL (0.0-0.1) 04/08/25 11:11 Nucleated RBC % (auto) 0 % 04/08/25 11:11 Nucleated RBCs # 0.0 /100WBC 04/08/25 11:11 Sodium 140 mmol/L (136-145) 04/08/25 11:11 Potassium 3.6 mmol/L (3.5-5.1) 04/08/25 11:11 Chloride 100 mmol/L (98-107) 04/08/25 11:11 Carbon Dioxide 24 mmol/L (22-29) 04/08/25 11:11 Anion Gap 19.6 (5-19) H 04/08/25 11:11 BUN 5 mg/dL (8-23) L 04/08/25 11:11 Creatinine 0.7 mg/dL (0.5-0.9) 04/08/25 11:11 GFR Calculation Not Reportable 04/08/25 11:11 Glucose 119 mg/dL (65-115) H 04/08/25 11:11 Calculated Osmolality 288 mOsm/kg (285-295) 04/08/25 11:11 Calcium 9.3 mg/dL (8.5-10.5) 04/08/25 11:11 Total Bilirubin 0.2 mg/dL (0.15-1.2) 04/08/25 11:11 AST 25 U/L (0-32) 04/08/25 11:11 ALT 13 U/L (0-33) 04/08/25 11:11 Alkaline Phosphatase 86 U/L (35-105) 04/08/25 11:11 Total Protein 7.0 g/dL (6.6-8.7) 04/08/25 11:11 Albumin 3.7 g/dL (3.5-5.2) 04/08/25 11:11 Globulin 3.3 g/dL (1.3-4.6) 04/08/25 11:11 No radiology studies performed this visit Discharge Plan Discharge Patient Disposition: Home Clinical Impression: Diverticulitis Condition: Stable Prescriptions: No Action triamcinolone acetonide 0.025 % ointment 1 applic topical BID Qty: 15 0RF albuterol sulfate [Ventolin HFA] 90 mcg/actuation HFA aerosol inhaler 2 puff inhalation 6XD PRN (Reason: shortness of breath or wheezing) Qty: 8.5 6RF alprazolam 2 mg tablet 2 mg PO BID Qty: 60 3RF carisoprodol [Soma] 350 mg tablet 350 mg PO TID Qty: 90 3RF cholecalciferol (vitamin D3) 1,250 mcg (50,000 unit) capsule 50,000 unit PO .weekly Qty: 12 3RF cyanocobalamin (vitamin B-12) 1,000 mcg/mL solution See Rx Instructions .ROUTE .COMPLEX Qty: 1 5RF Dose Instruction: INJECT 1000MCG INTRAMUSCULARLY MONTHLY Rx Instructions: INJECT 1000MCG INTRAMUSCULARLY MONTHLY diclofenac sodium 1 % gel See Rx Instructions .ROUTE .COMPLEX Qty: 100 0RF Dose Instruction: APPLY 2 GRAMS FOUR TIMES A DAY TO SINGLE ELBOW, WRIST OR HAND (INCLUDES PALM, FINGERS AND BACK OF HAND) Rx Instructions: APPLY 2 GRAMS FOUR TIMES A DAY TO SINGLE ELBOW, WRIST OR HAND (INCLUDES PALM, FINGERS AND BACK OF HAND) esomeprazole magnesium 40 mg capsule,delayed release(DR/EC) 40 mg PO DAILY Qty: 90 1RF fexofenadine-pseudoephedrine [Carmela-D 12 Hour] 60-120 mg tablet extended release 12 hr 1 tab PO Q12H PRN (Reason: allergy symptoms) Qty: 30 0RF fluoxetine 40 mg capsule See Rx Instructions .ROUTE .COMPLEX Qty: 90 1RF Dose Instruction: Take 1 capsule by mouth once daily Rx Instructions: Take 1 capsule by mouth once daily fluticasone propionate [Flonase Allergy Relief] 50 mcg/actuation spray,suspension 1 spray intranasal DAILY Qty: 16 3RF Rx Instructions: administer into each nostril mecobalamin (vitamin B12) 1,000 mcg tablet,disintegrating 1,000 mcg sublingual DAILY Qty: 90 4RF Rx Instructions: place tablet under tongue and allow to dissolve for at least30 secs before swallowing montelukast 10 mg tablet 10 mg PO DAILY 90 Days Qty: 90 2RF rosuvastatin 5 mg tablet See Rx Instructions .ROUTE .COMPLEX Qty: 30 3RF Dose Instruction: Take 1 tablet by mouth once daily Rx Instructions: Take 1 tablet by mouth once daily tramadol 50 mg tablet 50 mg PO TID Qty: 90 2RF tretinoin [Retin-A] 0.05 % cream 1 applic topical Q3D Qty: 45 0RF Breztri Aerosphere 160-9-4.8 mcg/actuation HFA aerosol inhaler 2 inh inhalation BID 30 Days Qty: 10.7 3RF Ultra CoQ10 75 mg capsule 75 mg PO DAILY Qty: 90 1RF amoxicillin-pot clavulanate 875-125 mg tablet 1 tab PO BID Qty: 20 0RF hydrocodone-acetaminophen 5-325 mg tablet 1 tab PO Q6H PRN (Reason: pain) Qty: 14 0RF ondansetron 4 mg tablet,disintegrating 4 mg PO Q8H PRN (Reason: nausea and vomiting) Qty: 14 0RF metronidazole 500 mg tablet 500 mg PO Q8H 10 Days Qty: 30 0RF ciprofloxacin HCl 500 mg tablet 500 mg PO Q12H 10 Days Qty: 20 0RF ondansetron 4 mg tablet,disintegrating 4 mg PO Q8H PRN (Reason: nausea and vomiting) 4 Days Qty: 14 0RF Discharge Orders: Discharge ED (Routine); Ordered 04/08/25 Ordered By: Zee Ludwig Referrals: Lam Hu MD [Primary Care Provider, Internal Medicine] Patient Instructions: Diverticulitis (DC), Patient Portal & Nancy Instructions Activity Restrictions/Additional Instructions: As we discussed, I would like you to follow-up with Dr. Kimbrough next week as scheduled. I am placing a case management referral to [facility] Women's Health for completion of a well woman exam. We also spoke about potential follow-up with urology regarding your chronic hematuria (blood in your urine). You may return to the emergency department for worsening abdominal pain, fevers, generally feeling worse or unwell, or any other concerns you may have. I hope you begin to feel better soon. 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
[2025-04-08 11:17] LABS: Hematocrit 43.0 % (36-47); Hemoglobin 14.30 g/dL (11.27-16.99); Mean Corpuscular HGB Conc 33.3 g/dL (30-55); Mean Corpuscular Hemoglobin 29.4 pg (27-33); Mean Corpuscular Volume 88.5 fl (85-98); Nucleated Red Blood Cells % 0 %; Platelet Count 377 10^3/cmm (157-399); Red Blood Count 4.86 10^6/uL (3.85-5.65); White Blood Count 8.89 10^3/uL (3.29-11.43)
[2025-04-08 11:34] LABS: Alanine Aminotransferase 13 U/L (0-33); Albumin Level 3.7 g/dL (3.5-5.2); Alkaline Phosphatase 86 U/L (35-105); Anion Gap 19.6 (5-19); Aspartate Amino Transferase 25 U/L (0-32); Blood Urea Nitrogen 5 mg/dL (8-23); Calcium 9.3 mg/dL (8.5-10.5); Carbon Dioxide 24 mmol/L (22-29); Chloride 100 mmol/L (98-107); Creatinine Clr Calc Pharmacy 58.9856; Globulin 3.3 g/dL (1.3-4.6); Glucose 119 mg/dL (65-115); Osmolality Calculated 288 mOsm/kg (285-295); Potassium 3.6 mmol/L (3.5-5.1); Sodium 140 mmol/L (136-145); Total Protein 7.0 g/dL (6.6-8.7)
--- NOTE | 2025-04-11 07:36 | DCPLANNER ---
messaged [facility] for er f/u
== END 2025-04-08 13:39 | disposition home or self-care (01) ==
PROVIDERS: Emergency Provider Physician Assistant; PCP Internal Medicine
DX: K57.92 Diverticulitis of intestine, part unspecified, without perforation or abscess without bleeding (principal); F17.210 Nicotine dependence, cigarettes, uncomplicated
CPT/HCPCS: 36415; 80053; 85025; 96360; 96361; 99284; J7030

== ENCOUNTER → 2025-04-14 07:47 | Outpatient (BNVA) | payer MEDICARE, SELFPAY | PROVIDERS: PCP Internal Medicine; Visit Provider Student in an Organized Health Care Education/Training Program | DX: K57.92 Diverticulitis of intestine, part unspecified, without perforation or abscess without bleeding (principal); F41.9 Anxiety disorder, unspecified | CPT/HCPCS: 99204 ==

== ENCOUNTER → 2025-04-25 13:56 | Outpatient (BNVA) | payer MEDICARE, SELFPAY | PROVIDERS: PCP Nurse Practitioner Family; Visit Provider Nurse Practitioner Family | DX: M79.7 Fibromyalgia (principal); E78.2 Mixed hyperlipidemia; E55.9 Vitamin D deficiency, unspecified; E53.8 Deficiency of other specified B group vitamins | CPT/HCPCS: 80053; 80061; 82306; 82607; 84443; 85025 ==

== ENCOUNTER → 2025-04-26 13:35 | Outpatient (BNVA) | payer MEDICARE, SELFPAY | PROVIDERS: PCP Nurse Practitioner Family; Visit Provider Nurse Practitioner Family | DX: B83.9 Helminthiasis, unspecified (principal); L02.92 Furuncle, unspecified | CPT/HCPCS: 87070; 87075; 87205 ==

== ENCOUNTER 2025-05-02 08:36 | Emergency (ER) | payer MEDICARE, SELFPAY ==
--- OUTSIDE RECORDS SUMMARY | 2023-10-27 05:40 | XMS_ITS | Continuity of Care Document ---
Author Organization [facility] Address [address] [place] [address] Phone Care Team Providers Care Technician Support Association Name Role Phone Ran Baca OD Unavailable Unavailable Allergies, Adverse Reactions, Alerts Substance Reaction Status Criticality codeine Active No Information aspirin Active No Information WARNIN allergy(ies) could not be collected because the type is not supported. Please contact the source practice for further details. Medications Medication Instructions Dosage Effective Dates (start - stop) Status Comments alprazolam 2 mg tablet TAKE 1/2 TABLET B Y MOUTH EVERY DAY AND TAKE 1 TABLET AT BEDTIME NEEDED FOR 30 DAYS F41.9 - Active tramadol 50 mg tablet TAKE 1 TABLET BY MOUTH EVERY 6 HOURS NEEDED M79.7//DAYS - Active carisoprodol 350 mg tablet take 1 tablet by oral route 2 times every day and at bedtime 350 MG - Active esomeprazole magnesium 40 mg capsule,delayed release take 1 capsule by oral route every day as needed 40 MG - Active azelastine 137 mcg (0.1 %) nasal spray aerosol spray 2 spray by intranasal route 2 times every day in each nostril as needed 274 MCG - Active fluoxetine 40 mg capsule take 1 capsule by oral route every day in the morning 40 MG - Active Procedures Procedure Date Pre Pay NOS Refraction Machine Records Units Supervisor Exam Contact Lens And Fitting Advance Directives Directive Yes / No Effective Date File Name No Information Encounters Encounter Description Practice Location Reason(s) For Visit Diagnoses Date Provider Providers Copied on Encounter [facility], [address], [place], [place], [id number] , [place] tel: [phone] [facility] No Information 4 Phuong OD Ran. [address], [place] , [place], [id number] , [place]. tel: [phone] [facility], [address], [place] , [place], [id number] , [place] tel: [phone] [facility] decreased vision (chief complaint) Age-related nuclear cataract, bilateralPresbyopia 1 Phuong OD Ran. [address], [place], [place], [id number] , [place]. tel: [phone] Referring Provider: Ran Baca OD, [address], [place], [address] . tel:[phone] Family History Family Member Type Diagnosis Age At Onset Mother Problem cataract Father Problem cancer of colon Mother Problem Diabetes mellitus Payers Payer name Insurance type Covered constitution party ID Authoriza tion(s) Medicare MB [id number] Social History Type Description Quantity Date Captured Comments Sex Female Smoking Status No Information Chief Complaint And Reason For Visit No Information Reason For Referral Reason For Referral No Information Plan Of Treatment Date Type Action Status Patient Education Cataracts: Care Instruc tions completed History Of Present Illness Encounter Date Complaint History Of Prese nt Illness decreased vision The 65 year old female presents for evaluation of decreased vision in the right eye and left eye. Patient c/o difficulty seeing the street/road sign and reading subtitles on TV , trouble driving at night due to the glare/halos around lights. States difficulty reading small prints , holds material closer and needs more light .*Patient states wore CL 3 years ago and would like to try again . Functional Status Date Functional Assessmen t No Information Instructions Date Instruction Additional Infor celia RTC [address] Baca for dilated/refract visit Related to Age-related nuclear cataract, bilateral Impression/Plan Related to Age-r elated nuclear cataract, bilateral Impression/Plan Related to Presb yopia Assessments Type Assessment Date No Information Patient Care Teams Name Effective Dates (start - stop) Status Members No Information
--- OUTSIDE RECORDS SUMMARY | 2025-05-02 08:47 | XMS_ITS | Clinical Summary ---
Author Organization [facility] Administrative Offices Address [address] [place] [id number] Care Team Providers Care Chief Ophthalmic Technician Name Role Phone Unavailable Primary Care Provider [...] 23 Active fluticasone propionate (FLONASE) 50 mcg/spray Post, Suspension nasal inhaler USE 1 SPRAY(S) IN EACH NOSTRIL ONCE DAILY 03/27/20 Active triamterene-hy droCHLOROthiaz dorcas (MAXZIDE 25) 37.5-25 mg tablet TAKE 1 TABLET BY MOUTH IN THE MORNING 03/10/20 Active KRILL OIL ORAL Take by mouth. Active coenzyme Q10 200 mg Capsule Take 200 mg by mouth daily. Active sodium chloride (OCEAN) 0.65 % Aerosol, Post Administer in each nostril PRN for Allergies. [...] = 0.6 oz pur e alcohol) socially Feeling Safe Answer Date Recorded Are you in a relationship wi th someone who hurts you emotionally and/or physically? No 07/30/2023 Comments No Sex and Gender Information Value Date Recorded Sex Assigned at Not on file Legal Sex Female 12:55 PM CDT Gender Identity Not on file Sexual Orientation Not on file Last Filed Vital Signs Vital Sign Reading Time Taken Comments Blood Pressure 180/83 07/30/2023 3:25 PM [employer] Pulse 86 07/30/2023 3:25 PM [employer] Temperature 36.3 C (97.3 F) 07/30/2023 3:25 PM [employer] Respiratory Rate 14 07/30/2023 3:18 PM [employer] Oxygen Saturation 97% 07/30/2023 3:25 PM [employer] Inhaled Oxygen Concentration - - Weight 69.5 kg (153 lb 4 oz) 07/30/2023 1:48 PM [employer] Height 161.9 cm (5' 3.75 ) 07/30/2023 1:48 PM CS T Body Mass Index 26.51 07/30/2023 1:48 PM [employer] Plan of Treatment Health Maintenance Due Date [...] Tdap) 11/07/2031 Medical Devices Implanted Type Area Tree Surgeon Device Identifier Shelf Expiration Date Model / Serial / Lot Lens Iol Tecnis Eyhance 24.0 [id number] - [id number] Implanted:Qty: 1 on 05/27/2023 by John Reyes MD at [facility] Left: Eye [employer] 2026 [id number] / [id number] / Lens Iol Tecnis Eyhance 24.0 [id number] - [id number] Implanted:Qty: 1 on 06/18/2023 by John Reyes MD at [facility] Right: Eye [employer] 03/09/2026 [id number] / [id number] / [place] [address] Advance Directives For more information, please contact: [phone] * Full Code (Latest Code Status on File) Date Activated Date Inactivated Comments 06/18/2023 12:18 PM 06/18/2023 5:06 PM * Full Code Date Activated Date Inactivated Comments 05/27/2023 8:59 AM 05/27/2023 1:43 PM
--- OUTSIDE RECORDS SUMMARY | 2025-05-02 08:47 | XMS_ITS | Patient Health Record ---
Author Organization [facility] Address [address] [place] [address] Care Team Providers Care Ham Facer Name Role Phone HuLeroy Primary Care Provider [phone] Allergies Allergen (clinical drug ingredient) Drug/Non Drug Allergy documented on EMR Reaction Allergy Type Onset Date Status aspirin Aspirin Unknown Drug Allergy Active Substance with sulfonamide structure and antibacterial mechanism of action (substance) Sulfa Antibiotics Unknown Drug Allergy Active Results Component Value Reference Range Flag Notes UA Dip / Urinalysis, Routine , Manual - [id number] Reviewed date:01/06/2025 02:42:43 PM Interpretation: Performing Lab: Notes/Report: Color Yellow Clarity Clear Glucose - Bilirubin - Ketones - Specific [place] 1.010 Blood +++ Large pH 5.0 Protein - Urobilinogen,Semi-Qn 0.2 Nitrite, Urine - Leukocytes + Small Bilat Diagnostic Mammogram - 45082 Reviewed date:12/29/2024 03:59:11 PM Interpretation: Performing Lab: Notes/Report: Vitamin B12 (B) 97299 Reviewed date:10/28/2024 01:09:20 PM Interpretation: Performing Lab: Notes/Report: Diagnosis Description: Deficiency of other specified B group vitamins [id number] >1999 211-911 pg/mL HI Thyroid Stimulating Hormone (TSH) 68855 Reviewed date:10/28/2024 12:16:15 PM Interpretation: Performing Lab: Notes/Report: Diagnosis Description: Deficiency of other specified B group vitamins TSH 1.194 .358-3.740 MlU/ML Lipid Panel Reflex DLDL 8006 1, 97984 Reviewed date:10/29/2024 11:54:09 AM Interpretation: Performing Lab: [...] Trig is >400 mg/dl. See DLDL result. Comprehensive Metabolic Pane l ([facility]) 30555 Reviewed date:10/28/2024 12:16:47 PM Interpretation: Performing Lab: Notes/Report: Diagnosis Description: Deficiency of other specified B group vitamins Glucose Serum 90 71-110 MG/DL Testing p erformed at [facility], [address] [place] [address] [place] [address]. CLIA ID#: [id number] BUN 11 7-21 MG/DL Creat .79 .51-1.17 MG/DL W-gajusi-i-benzoquinone imine (NAPQI) is a metabolite of acetaminophen, [...] 293 280-300 MOSM/KG CBC w\ Auto Diff 34404 Reviewed date:10/28/2024 12:16:41 PM Interpretation: Performing Lab: [...] 40.0-70.0 % Lymph Auto% 30.1 22.0-44.0 % [place] Auto% 7.4 3.0-7.0 % HI Eos Auto% .3 2.0-4.0 % LOW Baso Auto% 0.4 0.0-1.0 % Imm Gran% .3 .0-.4 % Neutro Abs 5.81 .80-7.70 Absolute Neutrophil Count 5810 NA Lymph Abs 2.85 .10-4.10 [place] Abs .70 .20-1.00 Eos Abs .03 .00-.40 Baso Abs .04 .00-.20 Imm Gran Abs .03 .00-.10 NRBC# .00 .00-.20 X10'3 NRBC% .00 .00-.20 /100 int act WBC's Reason For Referral No Information Medications Medication SIG (Take, Route, Frequency, Duration) Notes Start Date End Date Status Triamcinolone Acetonide 0.025 % Ointment 1 application Externally Twice a day Active Ultra COQ10 75 MG Capsule as directed Orally daily 200mg gummies Active Vitamin D3 1.25 MG (10101 [place]) Capsule 1 capsule Orally Active ALPRAZolam [...] do you smoke? 07-28 Section Notes: 06/22/24 Tob/DEP CIME 06/22/24 Tob/DEP CIME CIME Dep/tob - 12/08/24 CIME Depression screenin12/08/2024 CIME Tobacco screenin12/08/2024 CIME Depression screenin12/08/2024 CIME Tobacco screenin12/08/2024 CIME Depression screenin12/08/2024 CIME Tobacco screenin12/08/2024 06/22/24 Tob/DEP CIME CIME Dep/tob - 12/08/24 06/22/24 06/22/24 CIME Depression screenin12/08/2024 CIME Tobacco screenin12/08/2024 CIME Depression screenin12/08/2024 CIME Tobacco screenin12/08/2024 Problems Problem Type SNOMED Code ICD Code Onset Dates Problem Status W/U Status Risk Notes Problem Chronic sinusitis (67416512) Chronic sinusitis, unspecified (J32.9) Active confirmed Problem Bullous impetigo (550875253) Bullous impetigo (L01.03) Active confirmed Problem Generalized anxiety disorder (72319539) GEOVANNA (generalized anxiety disorder) (F41.1) Active confirmed Problem Obstipation (959901609) Obstipation (K59.00) Active confirmed Problem Vitamin B12 deficiency (non anemic) (41348109) B12 deficiency (E53.8) Active confirmed Problem Diverticulitis of colon (662394585) Acute diverticulitis (K57.92) Active confirmed Problem Tobacco use (010564242) Tobacco use disorder (F17.200) Active confirmed Problem Benzodiazepine dependence (967924523) Benzodiazepine dependence (F13.20) Active confirmed Vital Signs Heart Rate 124 /min 04/01/2025 Temperature 97.5 degrees Fahrenheit 04/01/2025 Oximetry 98 % 04/01/2025 Blood pressure diastolic 80 mm Hg 04/01/2025 Height-cm 162.56 cm 04/01/2025 Weight-kg 66.23 kg 04/01/2025 Height 64 in 04/01/2025 Blood pressure systolic 140 mm Hg 04/01/2025 Weight 146 lbs 04/01/2025 BMI 25.06 kg/m2 04/01/2025 Encounters Encounter Location Date Provider Diagnosis [facility] [address] [address] 06/22/2024 Leroy Hu B12 deficiency E53.8 ; GEOVANNA (generalized anxiety disorder) F41.1 ; Benzodiazepine dependence F13.20 ; Depression screen Z13.31 ; Cigarette smoker F17.210 and Immunization declined Z28.21 [facility] [address] [address] 07/20/2024 Leroy Hu GEOVANNA (generalized anxiety disorder) F41.1 ; B12 deficiency E53.8 ; Benzodiazepine dependence F13.20 and Cigarette smoker F17.210 [facility] [address] [address] 07/21/2024 Leroy Hu B12 deficiency E53.8 [facility] [address] [address] 08/10/2024 Leroy Hu B12 deficiency E53.8 [facility] [address] [address] 10/14/2024 Leroy Hu B12 deficiency E53.8 ; Benzodiazepine dependence F13.20 ; Cigarette smoker F17.210 ; Depression screen Z13.31 ; Immunization not carried out because of patient refusal Z28.21 ; Encounter for immunization Z23 and Tobacco use disorder F17.200 [facility] [address] [address] 12/08/2024 Leroy Hu B12 deficiency E53.8 ; Chronic sinusitis, unspecified J32.9 ; Tobacco use disorder F17.200 ; Other specified bacterial agents as the cause of diseases classified elsewhere B96.89 and Depression screen Z13.31 [facility] [address] [address] 12/15/2024 Leroy Hu GEOVANNA (generalized anxiety disorder) F41.1 and Depression screen Z13.31 [facility] [address] [place] [address] 01/06/2025 Leroy Hu B12 deficiency E53.8 ; GEOVANNA (generalized anxiety disorder) F41.1 ; Benzodiazepine dependence F13.20 ; Bullous impetigo L01.03 ; UTI symptoms R39.9 and Depression screen Z13.31 [facility] [address] [place] [address] 01/10/2025 Leroy Hu Bullous impetigo L01.03 ; B12 deficiency E53.8 ; Benzodiazepine dependence F13.20 and Depression screen Z13.31 [facility] [address] [place] [address] 01/20/2025 Leroy Hu Acute diverticulitis K57.92 and Depression screen Z13.31 [facility] [address] [place] [address] 02/11/2025 Leroy Hu GEOVANNA (generalized anxiety disorder) F41.1 [facility] [address] [place] [address] 03/29/2025 Leroy Hu Obstipation K59.00 ; B12 deficiency E53.8 and GEOVANNA (generalized anxiety disorder) F41.1 [facility] [address] [place] [address] 04/01/2025 Leroy Hu Obstipation K59.00 [facility] [address] [place] [address] 09/09/2024 Leroy Hu [facility] [address] [place] [address] 10/14/2024 Leroy Hu [facility] [address] [place] [address] 10/14/2024 Leroy Hu [facility] [address] [place] [address] 10/14/2024 Leroy Hu [facility] [address] [place] [address] 11/12/2024 Leroy Hu [facility] [address] [address] 11/16/2024 Leroy [facility] [address] [place] [address] 12/15/2024 Leroy Hu Breast lesion on mammography R92.8 [facility] [address] [place] [address] 12/16/2024 Leroy Hu [facility] [address] [address] 02/11/2025 Leroy Hu GEOVANNA (generalized anxiety disorder) F41.1 [facility] [address] [place] [address] 2025 Leroy Hu Assessments Encounter Date Diagnosis (ICD Code) Assessment Notes Treatment Notes Treatment Clinical Notes Section Notes 06/22/2024 B12 deficiency (ICD-10 - E53.8) 06/22/2024 GEOVANNA (generalized anxiety disorder) (ICD-10 - F41.1) 07/20/2024 GEOVANNA (generalized anxiety disorder) (ICD-10 - [...] 10/14/2024 Benzodiazepine dependence (ICD-10 - F13.20) 12/08/2024 B12 deficiency (ICD-10 - E53.8) 12/08/2024 Chronic sinusitis, unspecified (ICD-10 - J32.9) 12/15/2024 Breast lesion on mammography (ICD-10 - R92.8) 01/06/2025 B12 deficiency (ICD-10 - E53.8) 01/06/2025 GEOVANNA (generalized anxiety disorder) (ICD-10 - F41.1) Doing well. 01/10/2025 Bullous impetigo (ICD-10 - L01.03) All [...] office visit as needed for acute concerns. 12/15/2024 GEOVANNA (generalized anxiety disorder) (ICD-10 - F41.1) 01/20/2025 Acute diverticulitis (ICD-10 - K57.92) 02/11/2025 GEOVANNA (generalized anxiety disorder) (ICD-10 - F41.1) 02/11/2025 GEOVANNA (generalized anxiety disorder) (ICD-10 - F41.1) patient here for B12 injection - clinic provided medication 03/29/2025 Obstipation (ICD-10 - K59.00) 03/29/2025 B12 deficiency (ICD-10 - E53.8) 04/01/2025 Obstipation (ICD-10 - K59.00) 03/29/2025 GEOVANNA (generalized anxiety disorder) (ICD-10 - F41.1) 01/20/2025 Depression screen (ICD-10 - Z13.31) 12/15/2024 Depression screen (ICD-10 - Z13.31) 01/10/2025 B12 deficiency (ICD-10 - E53.8) 01/06/2025 Benzodiazepine dependence (ICD-10 - F13.20) 12/08/2024 Tobacco use disorder (ICD-10 - F17.200) 10/14/2024 Cigarette smoker (ICD-10 - F17.210) 07/20/2024 Benzodiazepine dependence (ICD-10 - F13.20) 06/22/2024 Benzodiazepine dependence (ICD-10 - F13.20) 06/22/2024 Depression screen (ICD-10 - Z13.31) 07/20/2024 Cigarette smoker (ICD-10 - F17.210) 10/14/2024 Depression screen (ICD-10 - Z13.31) 12/08/2024 Other specified bacterial agents as the cause of diseases classified elsewhere (ICD-10 - B96.89) 01/06/2025 Bullous impetigo (ICD-10 - L01.03) 01/10/2025 Benzodiazepine dependence (ICD-10 - F13.20) 01/10/2025 Depression screen (ICD-10 - Z13.31) 01/06/2025 UTI symptoms (ICD-10 - R39.9) 12/08/2024 Depression screen (ICD-10 - Z13.31) 10/14/2024 Immunization [...] controlled with light dressing. Lab sent to [facility] via food and beverage coordinator. Plan Of Treatment No Information Insurance Providers Payer Name Payer Address Payer Phone Subscriber Number Group Number Insured Name Patient Relationship to Insured Coverage Start Date Coverage End Date [employer] with DME [address] [address] [place] [phone] [id number] MELODY TILLEY Self - patient is the insured Medications Administered Medication Instructions Date of Administration Dosage Notes Cyanocobalamin 06/22/2024 1 mg Cyanocobalamin 02/11/2025 Rocephin 01/20/2025 1 g Medical (General) History Medical History History ICD Code Back Trouble fibromyalgia Impetigo Surgical History Surgery Date(Month/Year) tonsillectomy
[2025-05-02 09:05] VITALS: BP 137/94; PULSE 93; TEMP 36.8; O2SAT 98
--- NOTE | 2025-05-02 09:24 | ED_ITS ---
HPI - Skin/Abscess/Foreign Bdy 2 General: Chief complaint: Skin/Abscess/Foreign Body Stated complaint: blisters all over Time Seen by Provider: 05/02/25 08:47 Source: patient Mode of arrival: ambulatory Limitations: no limitations History of Present Illness: Patient is a 70-year-old female presents to ED today for a complaint of skin blisters. She states she has noticed them over the past month and they continue to spread. She first noticed them to her lower extremities. Patient states she has seen her primary care provider and has been on mupirocin ointment as well as oral clindamycin without any improvement. She feels like the lesions are itchy and sore. She does recall having a similar outbreak over 2 years ago that was successfully treated with steroids. She does have an upcoming appointment with dermatology next month. Denies any systemic symptoms. She did have one of the lesions aspirated and cultured through primary care-reviewed this and no growth was noted. MD complaint: rash and lesion Onset (ago): week(s) Tetanus up to date: yes Location: generalized Severity: mild Relieving factors: none Exacerbating factors: none Context: none Associated symptoms: Reports no associated symptoms; Deny chills, fever(s), nausea or vomiting Treatments prior to arrival: other (oral and topical abx) Related Data Home Medications ?Medication ?Instructions ?Recorded ?Confirmed alprazolam 2 mg tablet 1 mg PO BID 04/14/25 5 biotin 800 mcg tablet 1,000 mcg PO DAILY 04/25/25 04/26/25 black elderberry PO 04/25/25 04/26/25 coenzyme Q10 200 mg capsule (Co 200 mg PO DAILY 04/26/25 Q-10) mupirocin 2 % topical ointment 1 applic topical BID 04/26/25 (Centany) spore producing probiotics PO 04/25/25 04/26/25 superior krill oil PO 04/25/25 04/26/25 vilazodone 40 mg tablet 40 mg PO DAILY 04/25/2504/08 Previous Rx's ?Medication ?Instructions ?Recorded carisoprodol 350 mg tablet (Soma) 350 mg PO TID #90 ta bs 05/13/24 cholecalciferol (vitamin D3) 1,250 50,000 unit PO .cedric jang #12 caps 05/13/24 mcg (50,000 unit) capsule cyanocobalamin (vitamin B-12) See Rx Instructions .Rou te 05/13/24 1,000 mcg/mL injection solution .COMPLEX #1 mL montelukast 10 mg tablet 10 mg PO DAILY 90 days #90 t abs 05/13/24 albuterol sulfate 90 mcg/actuation 2 puff inhalation Q ID PRN 04/25/25 aerosol inhaler (Ventolin HFA) shortness of breath or wheezing #8.5 grams cetirizine 10 mg tablet (Zyrtec) 10 mg PO DAILY #90 ta bs 04/25/25 clindamycin HCl 300 mg capsule 300 mg PO TID 7 days #2 1 caps 04/25/25 (Cleocin HCl) fluticasone propionate 50 1 spray intranasal DAILY #16 grams 04/25/25 mcg/actuation nasal spray,suspension (Flonase Allergy Relief) ivermectin 3 mg tablet 13.5 mg (4.5 x 3 mg) PO ONCE 1 04/26/25 dose #4.5 tabs clobetasol 0.05 % lotion 1 applic topical BID 3 weeks #118 05/02/25 mL Allergies Allergy/AdvReac Type Severity Reaction Status Date / Time adhesive Allergy Unknown Verified 05/02/25 09:13 aspirin Allergy Unknown Verified 05/02/25 09:13 codeine Allergy Unknown Verified 05/02/25 09:13 Sulfa (Sulfonamide Allergy itching Verified 05/02/25 09:13 Antibiotics) Review of Systems 2 Const: Denies: fever(s), chills, body aches, fatigue or malaise ENMT: Denies: throat pain, odynophagia, nasal discharge, nasal congestion or sinus pain Card: Denies: chest pain Resp: Denies: dyspnea GI: Denies: abdominal pain, nausea, vomiting or diarrhea : Denies: flank pain, dysuria or hematuria Musc: Denies: neck pain, back pain, extremity pain, extremity swelling, joint pain, joint swelling or joint redness Skin/Breast: Reports: rash, skin pain and new lesions Neuro: Denies: headache(s), numbness in extremities, weakness in extremities, sensory changes or dizziness PFSH ED 2 PFSH: Medical History Environmental and seasonal allergies Anxiety and depression Enrolled in chronic care management Smoker Chronic back pain greater than 3 months duration GERD (gastroesophageal reflux disease) Fibromyalgia Surgical History History of nasal septoplasty Hx of nasal polypectomy History of tonsillectomy H/O dilation and curettage Family History Other Cancer Diabetes Social History Smoking and tobacco/nicotine status: current every day tobacco/nicotine user cigarettes Years cigarettes smoked: 10 Alcohol intake: current Alcohol intake frequency: holidays/special occasions only Alcohol type: wine Substance/Drug Use: never Household members: children Marital status: Current occupational status: retired Current gender identity: Female Physical Exam 2 Const: COMMON NORMALS: no acute distress, average body habitus, patient oriented x3, no limitations, healthy appearing, alert and well nourished G ENERAL APPEARANCE: cooperative ORIENTATION/CONSCIOUSNESS: Yes awake, Yes oriented to person, Yes oriented to place and Yes oriented to time HENMT: COMMON NORMALS: normocephalic and atraumatic HEAD & SCALP: normal to inspection, normocephalic and atraumatic FACE & SINUS: normal facial exam Eye: GENERAL EYE: appearance normal, both eyes and all related structures Neck/C-Spine: COMMON NORMALS: no lymphadenopathy Back/Pelvis: COMMON NORMALS: thoracic and lumbar spine normal to inspection Extremity: COMMON NORMALS: capillary refill normal, no clubbing, cyanosis or edema, no calf tenderness and no pedal edema GENERAL: Yes normal exam except as noted Neuro: COMMON NORMALS: patient oriented x3, moves all extremities, no focal motor deficits, no sensory deficits noted and gait normal S ENSORIUM/ORIENTATION: Yes alert, Yes oriented to person, Yes oriented to place and Yes oriented to time Skin: NARRATIVE SKIN EXAM: multiple bullous lesion formations throughout L LE-has early lesions to R LE, abdomen, chest, back-states that is how they start before turning into bulla LESIONS: lesion noted Course 2 Vital Signs: Vital signs: Vital Signs Temperature 98.3 F 05/02/25 09:05 Pulse Rate 93 05/02/25 09:05 Blood Pressure 137/94 05/02/25 09:05 Pulse Oximetry 98 05/02/25 09:05 Oxygen Delivery Me thod Room Air 05/02/25 09:05 MDM - Skin/Abscess/Foreign Bdy Medicial Decision Making Rash most consistent with bullous pemphigoid. Will place on twice daily topical steroids. Continue plan for dermatology follow up next month. Medical Records I reviewed the patient's medical records. Lab Data I reviewed the patient's lab results. 05/02/25 09:36 05/02/25 09:36 Laboratory Results WBC 8.80 10^3/uL (3.29-11.43) 05/02/25 09:36 RBC 5.12 10^6/uL (3.85-5.65) 05/02/25 09:36 Hgb 15.00 g/dL (11.27-16.99) 05/02/25 09:36 Hct 47.0 % (36-47) 05/02/25 09:36 MCV 91.8 fl (85-98) 05/02/25 09:36 MCH 29.3 pg (27-33) 05/02/25 09:36 MCHC 31.9 g/dL (30-55) 05/02/25 09:36 RDW 14.3 % (12.1-15.1) 05/02/25 09:36 Plt Count 313 10^3/cmm (157-399) 05/02/25 09:36 MPV 10.6 fL (7.4-10.4) H 05/02/25 09:36 Neut % (Auto) 60.7 % 05/02/25 09:36 Lymph % (Auto) 28.4 % 05/02/25 09:36 [place] % (Auto) 8.2 % 05/02/25 09:36 Eos % (Auto) 1.8 % 05/02/25 09:36 Baso % (Auto) 0.6 % 05/02/25 09:36 Neut # (Auto) 5.34 10^3/uL (1.8-7.7) 05/02/25 09:36 Lymph # (Auto) 2.5 10^3/uL (0.8-4.8) 05/02/25 09:36 [place] # (Auto) 0.7 10^3/uL (0.2-0.9) 05/02/25 09:36 Eos # (Auto) 0.2 10^3/uL (0.0-0.8) 05/02/25 09:36 Baso # (Auto) 0.1 10^3/uL (0.0-0.1) 05/02/25 09:36 Nucleated RBC % (auto) 0 % 05/02/25 09:36 Nucleated RBCs # 0.0 /100WBC 05/02/25 09:36 No radiology studies performed this visit Discharge Plan Discharge Patient Disposition: Home Clinical Impression: Bullous pemphigoid Condition: Stable Prescriptions: New clobetasol 0.05 % lotion 1 applic topical BID 21 Days Qty: 118 2RF Rx Instructions: Apply twice daily to lesions No Action carisoprodol [Soma] 350 mg tablet 350 mg PO TID Qty: 90 3RF cholecalciferol (vitamin D3) 1,250 mcg (50,000 unit) capsule 50,000 unit PO .weekly Qty: 12 3RF cyanocobalamin (vitamin B-12) 1,000 mcg/mL solution See Rx Instructions .ROUTE .COMPLEX Qty: 1 5RF Dose Instruction: INJECT 1000MCG INTRAMUSCULARLY MONTHLY Rx Instructions: INJECT 1000MCG INTRAMUSCULARLY MONTHLY montelukast 10 mg tablet 10 mg PO DAILY 90 Days Qty: 90 2RF alprazolam 2 mg tablet 1 mg PO BID biotin 800 mcg tablet 1,000 mcg PO DAILY mupirocin [Centany] 2 % ointment 1 applic topical BID coenzyme Q10 [Co Q-10] 200 mg capsule 200 mg PO DAILY vilazodone 40 mg tablet 40 mg PO DAILY Rx Instructions: must administer with a meal/food black elderberry 50 mg PO spore producing probiotics PO superior krill oil 500 mg PO clindamycin HCl [Cleocin HCl] 300 mg capsule 300 mg PO TID 7 Days Qty: 21 0RF cetirizine [Zyrtec] 10 mg tablet 10 mg PO DAILY Qty: 90 3RF albuterol sulfate [Ventolin HFA] 90 mcg/actuation HFA aerosol inhaler 2 puff inhalation QID PRN (Reason: shortness of breath or wheezing) Qty: 8.5 5RF fluticasone propionate [Flonase Allergy Relief] 50 mcg/actuation spray,suspension 1 spray intranasal DAILY Qty: 16 3RF Rx Instructions: administer into each nostril ivermectin 3 mg tablet 13.5 mg PO ONCE Qty: 4.5 0RF Discharge Orders: Discharge ED (Routine); Ordered 05/02/25 Ordered By: Zee Ludwig Referrals: Paulina Burnette FNP [Primary Care Provider, Family Practice] Patient Instructions: Patient Portal & Nancy Instructions Activity Restrictions/Additional Instructions: Treatment at this time will be with topical steroids with directions to apply twice daily over the next 3 weeks. If no treatment response, you may require oral or systemic steroids. Please continue plan to follow-up with dermatology. Print Language: [place] Coding Level of Care Code ED Satin Finisher for Momo Osei
[2025-05-02 09:46] LABS: Hematocrit 47.0 % (36-47); Hemoglobin 15.00 g/dL (11.27-16.99); Mean Corpuscular HGB Conc 31.9 g/dL (30-55); Mean Corpuscular Hemoglobin 29.3 pg (27-33); Mean Corpuscular Volume 91.8 fl (85-98); Nucleated Red Blood Cells % 0 %; Platelet Count 313 10^3/cmm (157-399); Red Blood Count 5.12 10^6/uL (3.85-5.65); White Blood Count 8.80 10^3/uL (3.29-11.43)
[2025-05-02 10:05] LABS: Alanine Aminotransferase 10 U/L (0-33); Albumin Level 3.8 g/dL (3.5-5.2); Alkaline Phosphatase 100 U/L (35-105); Aspartate Amino Transferase 17 U/L (0-32); Blood Urea Nitrogen 13 mg/dL (8-23); Calcium 9.5 mg/dL (8.5-10.5); Carbon Dioxide 23 mmol/L (22-29); Chloride 105 mmol/L (98-107); Creatinine Clr Calc Pharmacy 58.8011; Globulin 3.5 g/dL (1.3-4.6); Glucose 112 mg/dL (65-115); Osmolality Calculated 293 mOsm/kg (285-295); Sodium 141 mmol/L (136-145); Total Protein 7.3 g/dL (6.6-8.7)
[2025-05-02 10:14] VITALS: BP 136/89; PULSE 88; O2SAT 98
[2025-05-02 10:23] LABS: Anion Gap 17.4 (5-19); Potassium 4.4 mmol/L (3.5-5.1)
== END 2025-05-02 10:14 | disposition home or self-care (01) ==
PROVIDERS: Family Medicine; Emergency Provider Physician Assistant; PCP Nurse Practitioner Family
DX: L12.0 Bullous pemphigoid (principal)
CPT/HCPCS: 36415; 80053; 85025; 99283

== ENCOUNTER → 2025-05-05 08:50 | Outpatient (BNVA) | payer MEDICARE, SELFPAY | PROVIDERS: PCP Nurse Practitioner Family; Visit Provider Nurse Practitioner Family | DX: L30.9 Dermatitis, unspecified (principal); L57.8 Other skin changes due to chronic exposure to nonionizing radiation; L81.4 Other melanin hyperpigmentation; X32.XXXA Exposure to sunlight, initial encounter; D48.5 Neoplasm of uncertain behavior of skin | CPT/HCPCS: 11104; 11105; 99204 ==

== ENCOUNTER → 2025-05-19 10:54 | Outpatient (BNVA) | payer MEDICARE, SELFPAY | PROVIDERS: PCP Nurse Practitioner Family; Visit Provider Nurse Practitioner Family | DX: D22.72 Melanocytic nevi of left lower limb, including hip (principal); L30.8 Other specified dermatitis | CPT/HCPCS: 99213 ==

== ENCOUNTER 2025-05-31 05:51 | Day surgery (SDC) | payer MEDICARE, SELFPAY ==
[2025-05-31 06:10] VITALS: BP 159/84; PULSE 88; RESP 18; TEMP 36.2; O2SAT 96
[2025-05-31 06:13] VITALS: BMI 25.7
--- NOTE | 2025-05-31 07:01 | ANES.PREANE2 ---
Pre-Anesthetic Assessment Height/Weight: Height 1.6 m Weight 65.771 kg Temp Pulse Resp BP Pulse Ox O2 Del Method 97.2 F L 88 18 159/84 96 Room Air 05/31/25 06:10 05/31/25 06:10 05/31/25 06:10 05/31/25 06:10 05/31/25 06:10 05/31/25 06:10 Preop Diagnosis: diverticulitis Operation Date: 05/31/25 07:00 Proposed Procedures p Colonoscopy [id number] K57.92(Not Applicable) - Marquez Kimbrough MD Familial anesthetic complications: none Was Beta Kelsie taken within 24 hours: N/A Was Clonidine taken within 24 hours: N/A Last intake: Intake Last Liquid Date 05/30/25 Last Liquid Time 20:00 Last Solid Date 05/29/25 Social Alcohol (social) and Tobacco 3/4 PPD pack(s) per day Exam alert, oriented x 3, clear to auscultation bilaterally and regular rate & rhythm Airway Submandibular: within normal limits Cervical ROM: within normal limits Mallampati: Class II Dentition: caps (upper front) History/ROS No significant history except as noted Pulmonary Chronic Obstructive Pulmonary Disease CV/HEM None reported None reported Hepatic None reported GI Gastroesophageal Reflux Disease Metabolic None reported Musc/sk Fibromyalgia (chronic pain) Anesthetic Plan ASA status: 3 Anesthesia: MAC Risk of > 500 ml blood loss (7ml/kg in children): No Medications/Allergies Home Medications ?Medication ?Instructions ?Recorded ?Confirmed ?Last Taken ?Type albuterol sulfate 90 mcg/actuation 2 puff inhalation QID PRN 04/25/25 05/31/25 Unknown Rx aerosol inhaler (Ventolin HFA) shortness of breath or wheezing #8.5 grams biotin 800 mcg tablet 1,000 mcg PO DAILY 04/25/25 05/25/25 05/28/25 History black elderberry 50 mg PO DAILY 04/25/25 05/25/25 05/28/25 History cetirizine 10 mg tablet (Zyrtec) 10 mg PO DAILY #90 tabs 04/25/25 05/25/25 05/29/25 Rx coenzyme Q10 200 mg capsule (Co 200 mg PO DAILY 04/25/25 05/25/25 05/29/25 History Q-10) fluticasone propionate 50 1 spray intranasal DAILY #16 grams 04/25/25 05/25/25 05/28/25 Rx mcg/actuation nasal spray,suspension (Flonase Allergy Relief) mupirocin 2 % topical ointment 1 applic topical BID 04/25/25 05/25/25 05/28/25 History (Centany) spore producing probiotics 1 tab PO BID 04/25/25 05/25/25 05/28/25 History superior krill oil 500 mg PO DAILY 04/25/25 05/25/25 05/28/25 History vilazodone 40 mg tablet (Viibryd) 40 mg PO DAILY 04/25/25 05/25/25 05/28/25 History clobetasol 0.05 % lotion 1 applic topical BID 3 weeks #118 05/02/25 05/25/25 05/28/25 Rx mL alprazolam 0.25 mg tablet 0.25 mg PO DAILY #10 tabs 05/17/25 05/25/25 05/30/25 Rx cyanocobalamin (vitamin B-12) 1,000 mcg SUBCUT .MONTHLY 05/25/25 05/31/25 Unknown History 1,000 mcg/mL injection solution Allergies Allergy/AdvReac Type Severity Reaction Status Date / Time adhesive Allergy Unknown Verified 05/31/25 06:06 aspirin Allergy Unknown Verified 05/31/25 06:06 codeine Allergy Unknown Verified 05/31/25 06:06 Sulfa (Sulfonamide Allergy itching Verified 05/31/25 06:06 Antibiotics) Current Medications Generic Name Dose Route Start Last Admin Trade Name Freq PRN Reason Stop Dose Admin Sodium Chloride 1,000 mls @ 15 mls/hr 05/31/25 05:56 05/31/25 06:09 Sodium Chloride 0.9% IV 06/01/25 05:55 15 mls/hr .Q24H PRN Administration COLONOSCOPY FLUIDS PFSH Anesthesia Medical History Environmental and seasonal allergies Anxiety and depression Enrolled in chronic care management Smoker Chronic back pain greater than 3 months duration GERD (gastroesophageal reflux disease) Fibromyalgia Surgical History History of nasal septoplasty Hx of nasal polypectomy History of tonsillectomy H/O dilation and curettage Family History Other Cancer Diabetes Social History Smoking and tobacco/nicotine status: never used tobacco/nicotine Alcohol intake: current Alcohol intake frequency: holidays/special occasions only Alcohol type: wine Substance/Drug Use: never Household members: children Marital status: Current occupational status: retired Current gender identity: Female
--- NOTE | 2025-05-31 07:04 | W.PM.OPSFHP ---
Same Day Surgery H&P Indication for Procedure/HPI DATE OF PROCEDURE: May 31, 2025 CHIEF COMPLAINT/INDICATIONFOR SURGICAL PROCEDURE: diverticulitis PREOP DIAGNOSIS: diverticulitis PLANNED PROCEDURE: Operation Date: 05/31/25 07:00 Proposed Procedures p Colonoscopy [id number] K57.92(Not Applicable) - Marquez Kimbrough MD Medications/Allergies* Home Medications ?Medication ?Instructions ?Recorded ?Confirmed ?Type biotin 800 mcg tablet 1,000 mcg PO DAILY 04/25/25 05/25/25 History black elderberry 50 mg PO DAILY 04/25/25 05/25/25 History coenzyme Q10 200 mg capsule (Co 200 mg PO DAILY 04/25/25 05/25/25 History Q-10) mupirocin 2 % topical ointment 1 applic topical BID 04/25/25 05/25/25 History (Centany) spore producing probiotics 1 tab PO BID 04/25/25 05/25/25 History superior krill oil 500 mg PO DAILY 04/25/25 05/25/25 History vilazodone 40 mg tablet (Viibryd) 40 mg PO DAILY 04/25/25 05/25/25 History cyanocobalamin (vitamin B-12) 1,000 mcg SUBCUT .MONTHLY 05/25/25 05/31/25 History 1,000 mcg/mL injection solution Allergies/Adverse Reactions Allergy/AdvReac Type Severity Reaction Status Date / Time adhesive Allergy Unknown Verified 05/31/25 06:06 aspirin Allergy Unknown Verified 05/31/25 06:06 codeine Allergy Unknown Verified 05/31/25 06:06 Sulfa (Sulfonamide Allergy itching Verified 05/31/25 06:06 Antibiotics) Current Medications: Generic Name Dose Route Start Last Admin Trade Name Freq PRN Reason Stop Dose Admin Sodium Chloride 1,000 mls @ 15 mls/hr 05/31/25 05:56 05/31/25 06:09 Sodium Chloride 0.9% IV 06/01/25 05:55 15 mls/hr .Q24H PRN Administration COLONOSCOPY FLUIDS Pertinent History/Comorbid Conditions* Medical History (Updated 05/10/25 @ 00:00 by TRACY Jimenez) Environmental and seasonal allergies Anxiety and depression Enrolled in chronic care management Smoker Chronic back pain greater than 3 months duration GERD (gastroesophageal reflux disease) Fibromyalgia Surgical History (Updated 05/08/23 @ 08:30 by Andrea Alvarez MD) History of nasal septoplasty Hx of nasal polypectomy History of tonsillectomy H/O dilation and curettage Family History (Updated 02/21/21 @ 14:11 by Laura Alexis LPN) Diabetes Cancer Social History Smoking and tobacco/nicotine status: never used tobacco/nicotine Alcohol intake: current Alcohol intake frequency: holidays/special occasions only Alcohol type: wine Substance/Drug Use: never Household members: children Marital status: Current occupational status: retired Current gender identity: Female Pertinent Exam Findings alert, oriented x 3, clear to auscultation bilaterally, regular rate & rhythm and procedure specific exam findings abdomen soft, nt, nd Recommendations Risks and benefits of procedure reviewed and Patient/family agree to proceed Surgery/Procedure today Coding Level of Care Code Acute Code for Chg Fwd
[2025-05-31 07:29] VITALS: BP 112/52; PULSE 77; RESP 10; TEMP 36.1; O2SAT 95
[2025-05-31 07:45] VITALS: BP 114/77; PULSE 71; RESP 16; O2SAT 96
--- NOTE | 2025-05-31 08:10 | ANE.PACU2 ---
Inpatient post-anesthesia follow up: Airway intact: Yes Vital signs: Temperature 97.0 F Pulse Rate 71 Respiratory Rate 16 Blood Pressure 114/77 Pulse Oximetry 96 Oxygen Delivery Me thod Room Air Oxygen Flow Rate Fraction of Inspir ed Oxygen Hydration adequate: Yes Nausea and vomiting: No Pain level: 1 Mental status: Baseline
== END 2025-05-31 08:10 | disposition home or self-care (01) ==
PROVIDERS: PCP Nurse Practitioner Family; Visit Provider Student in an Organized Health Care Education/Training Program
PROC: 0DJD8ZZ Inspection of Lower Intestinal Tract, Via Natural or Artificial Opening Endoscopic (ICD-10-PCS; CPT 45330; 2025-05-31 07:00)
DX: K57.32 Diverticulitis of large intestine without perforation or abscess without bleeding (principal); K21.9 Gastro-esophageal reflux disease without esophagitis; F41.8 Other specified anxiety disorders; M79.7 Fibromyalgia; F17.200 Nicotine dependence, unspecified, uncomplicated; J44.9 Chronic obstructive pulmonary disease, unspecified
CPT/HCPCS: 45330; 45378; J2704; J7030

== ENCOUNTER → 2025-06-06 10:49 | Outpatient (BNVA) | payer MEDICARE, SELFPAY | PROVIDERS: PCP Nurse Practitioner Family; Visit Provider Nurse Practitioner Women's Health | DX: Z01.419 Encounter for gynecological examination (general) (routine) without abnormal findings (principal); R39.9 Unspecified symptoms and signs involving the genitourinary system; R30.0 Dysuria | CPT/HCPCS: 84315; 87086; 87624 ==